=== PATIENT | female | born 1965 | race Two or more races ===

== ENCOUNTER → 2022-01-13 | Outpatient (CLI) | payer BC, SELFPAY ==
--- NOTE | 2022-01-13 08:01 | BI_ITS ---
MAMMOGRAPHY - BILATERAL SCREENING REASON FOR EXAM: Female, 56 years old. Routine annual screening examination. PERTINENT HISTORY: Aunts with breast cancer. TECHNIQUE: Digital bilateral breast kiera (3D mammographic acquisition) in the CC and MLO projections. 2-D mediolateral oblique (MLO) and craniocaudad (CC) views of both breasts were obtained. CAD: Full Field Digital Mammography with Computer Added Detection was performed. COMPARISON: Comparison is made with prior outside examination dated 03/31/2019. FINDINGS: Breast Composition: There are scattered areas of fibroglandular density. There are no dominant masses or suspicious calcifications. Stable asymmetry of breast tissue where more breast tissue is seen in the retroareolar region of the left breast as compared to the right side. Correlation with ultrasound is recommended. No other significant abnormalities are identified. There has been no significant change since the prior study. BI/SCRN MAMM (CAD)W/KIERA BILAT IMPRESSION: Stable bilateral screening mammogram. Correlation with ultrasound of the retroareolar region of the left breast is recommended for further evaluation. ASSESSMENT CATEGORY: BIRADS Category 0: Incomplete. Need additional imaging evaluation. A letter regarding these results will be sent to the patient by the facility within 30 days. Approximately 10% of breast cancers are not detected by mammography. A normal mammogram should not delay biopsy of a clinically suspicious abnormality. [id number] Electronically Signed: Mj Garcia MD at 14:42 EST ,
== END | disposition home or self-care (01) ==
LOC: OPBI 07:57
PROVIDERS: Visit Provider Nurse Practitioner Women's Health
DX: Z12.31 Encounter for screening mammogram for malignant neoplasm of breast (principal); Z80.3 Family history of malignant neoplasm of breast
CPT/HCPCS: 77063; 77067

== ENCOUNTER → 2022-01-27 | Outpatient (CLI) | payer BC, SELFPAY ==
--- NOTE | 2022-01-27 09:10 | US_ITS ---
STUDY: ULTRASOUND BREAST - LEFT REASON FOR EXAM: Female, 56 years old. Abnormal screening mammogram. TECHNIQUE: Axial and longitudinal images of the LEFT breast were performed with a high resolution ultrasound transducer. # OF IMAGES: 47 COMPARISON: Comparison is made with prior mammogram dated 01/13/2022. FINDINGS: LEFT Breast: The retroareolar region of the left breast was examined with ultrasound. There is a 4 mm x 3 mm x 2 mm cyst. There is also evidence of a 3 cm x 5.4 cm x 1.2 cm echogenic well-defined nodule at 9 o''clock position of the breast at 4 cm from the nipple. A similar appearing echogenic nodule is seen at the 9 o''clock position of the breast at 3 cm from nipple. This most likely represents a small lipoma. US/Breast Limited Unilateral IMPRESSION: 4 mm x 3 mm x 2 mm cyst in the retroareolar region of the breast. 5.4 cm x 3 cm x 1.2 cm echogenic well-defined nodule at the 9 o''clock position breast 4 cm from nipple. This most likely represents a lipoma. ASSESSMENT CATEGORY: BIRADS Category 2: Benign. A letter regarding these results will be sent to the patient by the facility within 30 days. Electronically Signed: Mj Garcia MD at 9:16 EST ,
== END | disposition home or self-care (01) ==
LOC: OPBI 09:08
PROVIDERS: Visit Provider Nurse Practitioner Women's Health
DX: R92.8 Other abnormal and inconclusive findings on diagnostic imaging of breast (principal)
CPT/HCPCS: 76642

== ENCOUNTER → 2022-07-07 | Outpatient (CLI) | payer BC, SELFPAY ==
[2022-07-07 12:20] LABS: Absolute Neutrophil Count 2.5 X10^3/uL (2.0-7.7); Basophil# 0.02 X10^3/uL; Basophil% 0.5 % (0-1); Eosinophils% 5.2 % (0-5); Hematocrit 44.9 % (37-47); Hemoglobin 14.3 g/dL (12.0-15.0); Lymphocyte % 20.6 % (19-41); Mean Corp Hgb Conc 31.8 g/dL (32-36); Mean Corpuscular Hgb 30.8 pg (27.0-32.0); Mean Corpuscular Volume 96.6 fL (81-99); Mean Platelet Vol. 11.5 fl (6.2-12.0); Monocyte# 0.35 X10^3/uL; NRBC Flagged by Analyzer 0 % (0-5); Neutrophil # 2.49 X10^3/uL (2.7-7.7); Neutrophil % 64.2 % (47-70); Platelet Count 258 K/mm3 (150-450); RBC Distribution Width CV 12.2 % (11.6-14.6); RBC Distribution Width SD 43.7 fl (35.1-43.9); Red Blood Count 4.65 M/mm3 (4.2-5.4); White Blood Count 3.9 K/mm3 (4.4-11.0)
[2022-07-07 12:39] LABS: Hemoglobin A1c 5.3 % (3.8-5.6)
[2022-07-07 12:46] LABS: AST(SGOT) 17 U/L (15-37); Alanine Aminotransfer ALT/SGPT 25 U/L (13-56); Albumin, Serum 3.6 g/dL (3.2-5.0); Alkaline Phosphatase 62 U/L (45-117); Anion Gap 8 (5-15); BUN 18 mg/dL (7-18); BUN/Creat Ratio 24.1 RATIO (10-20); Calcium,Total 8.6 mg/dL (8.5-10.1); Chloride 107 mmol/L (98-107); Cholesterol 175 mg/dL (200); Creatinine, Serum 0.75 mg/dL (0.55-1.02); EST Glomerular Filtration Rate 85 mL/min (>60); Est Glom Filt Rate - Afr Amer 103 mL/min (>60); Free T3 2.4 pg/mL (2.18-3.98); Globulin 3.7 g/dL (2.2-4.2); Glucose 96 mg/dL (74-106); High Density Lipoprotein 55 mg/dL; Potassium 4.1 mmol/L (3.5-5.1); Protein, Total 7.3 g/dL (6.4-8.2); Sodium Level 140 mmol/L (136-145); Thyroid Stim Hormone (TSH) 1.57 uIU/mL (0.358-3.74); Triglycerides 71 mg/dL; Very Low Density Lipoprotein 14 mg/dL (5-40)
[2022-07-08 16:09] LABS: Thyroglobulin Antibody 20.9 IU/mL (0.0-0.9); Thyroid Peroxidase AB 308 IU/mL (0-34)
== END | disposition home or self-care (01) ==
PROVIDERS: Visit Provider Family Medicine
DX: R79.89 Other specified abnormal findings of blood chemistry (principal); R00.2 Palpitations
CPT/HCPCS: 36415; 80053; 80061; 83036; 84439; 84443; 84481; 85025; 86376; 86800

== ENCOUNTER → 2022-07-30 | Outpatient (CLI) | payer BC, MEDICAID, SELFPAY ==
[2022-07-30 13:16] LABS: T4 Free Direct 0.98 ng/dL (0.76-1.46); Thyroid Stim Hormone (TSH) 4.87 uIU/mL (0.358-3.74)
== END | disposition home or self-care (01) ==
LOC: MFPLAB 10:12
PROVIDERS: PCP Family Medicine; Visit Provider Family Medicine
DX: E06.3 Autoimmune thyroiditis (principal)
CPT/HCPCS: 36415; 84439; 84443

== ENCOUNTER 2022-10-09 17:44 | Emergency (ER) | payer BC, MEDICAID, SELFPAY ==
[2022-10-09 17:46] VITALS: BP 134/87; PULSE 85; RESP 18; TEMP 36.4; O2SAT 99; BMI 36.5
--- NOTE | 2022-10-09 20:39 | NURSING ---
1925 pt left,no response to why.
== END 2022-10-09 21:39 | disposition left against medical advice (07) ==
PROVIDERS: PCP Family Medicine
DX: K08.89 Other specified disorders of teeth and supporting structures (principal)

== ENCOUNTER 2022-10-27 13:43 | Emergency (ER) | payer MEDICAID, SELFPAY ==
[2022-10-27 13:44] VITALS: BP 159/117; PULSE 78; RESP 20; TEMP 36.6; O2SAT 99; BMI 37.0
--- NOTE | 2022-10-27 14:54 | ED.VIS.DENTA ---
HPI History of Present Illness Chief Complaint: Dental Informant: patient Onset/Context/Timing Onset: Weeks (2 weeks) Context: Gradual Onset Current Severity: Moderate Maximum Severity: Moderate Narrative Narrative: Patient presents with 2-week history of increasing right lower dental pain. She states her wisdom teeth grew in with not much space and she has intermittent problems with them. For the past 2-week she had increasing pain. gave her an 800 mg ibuprofen last night that did seem to calm it down enough that she could sleep. She has not been able get scheduled with her dentist until January. PFSH PFSH Medical History no medical history no medical history Home Medications ibuprofen 800 mg tablet 800 mg PO Q8H PRN pain #20 tabs 10/27/22 [Rx Last Taken Unknown] penicillin V potassium 500 mg tablet 500 mg PO 4X/DAY #40 tabs 10/27/22 [Rx Last Taken Unknown] Allergy/AdvReac Type Severity Reaction Status Date / Time No Known Allergies Allergy Verified 10/27/22 13:45 Family History no significant family his Surgical History no surgical history Social History Smoking Status: Unknown if ever smoked ROS ROS ED Constitutional Constitutional ED: Denies chills or fever(s) Eyes Eyes: Denies discharge from eye(s) ENT ENT ED: Reports ear pain and other Details: Right lower dental pain ; Denies discharge from eye(s), rhinorrhea or sore throat Cardiovascular Cardiovascular: Denies chest pain Respiratory/Chest Respiratory/Chest: Denies cough or dyspnea Musculoskeletal Musculoskeletal: Denies back pain, extremity pain or neck pain Integumentary Denies Abrasions or rash Neurologic Neurologic: Denies headache(s) or weakness Allergic/Immunologic Allergic/Immunologic ED: Denies lip swelling or urticaria EXAM Physical Exam Const Vital Signs: 10/27/22 13:44 Temperature 97.9 F Temperature Source Temporal Pulse Rate 78 Respiratory Rate 20 H Blood Pressure 159/117 H Blood Pressure Mean 131 Pulse Ox 99 Oxygen Delivery Method Room Air Positive well nourished and well developed General Appearance ED: well developed HEENT Reports normocephalic and head/scalp atraumatic HEENT Narrative: Intraoral examination reveals second and third right mandibular molars to be crowded and growing in at an angle. Mild surrounding gum edema. Patient does have an enlarged lymph node under the right mandibular angle. No evidence of Ludewig's angina. Posterior pharynx is unremarkable. Eyes PERRL and EOMs intact bilaterally Neck supple Chest Wall inspection of chest normal and palpation of chest normal Resp normal respiratory effort and clear to auscultation bilaterally Cardio regular rate and regular rhythm GI Palpation: soft Extremity normal to inspection Neuro oriented x3 and no sensory deficits noted Sensorium / Orientation: alert Motor Exam: strength 5/5 throughout Psych mental status grossly normal Skin no rashes or lesions noted MDM MDM MDM Narrative Medical decision making narrative: Patient was treated with ibuprofen and Pen-Vee K, first dose is given here. Prescription be sent to the pharmacy for her. I did give her a referral dental clinic list to see if she can be seen earlier than her currently scheduled appointment. Return instructions given. Discharge Plan Triage Chief Complaint: Dental ED Provider: Marcela Blanchard Dx/Rx/DC Orders Clinical Impression: Odontalgia Instructions: ED Dental Pain Prescriptions: New ibuprofen 800 mg tablet 800 mg PO Q8H PRN (Reason: pain) Qty: 20 0RF penicillin V potassium 500 mg tablet 500 mg PO 4X/DAY Qty: 40 0RF Primary Care Provider: Svetlana Velez Referrals: Svetlana Velez, DO [Primary Care Provider] - Activity Restrictions/Additional Instructions: Dental referral list provided. Disposition Disposition: Home, Self Care
[2022-10-27] MEDS: Ibuprofen 400 MG Tablet 800 MG PO (15:23)
[2022-10-27] MEDS: Penicillin Vk 250 MG Tablet 500 MG PO (15:24)
== END 2022-10-27 15:29 | disposition home or self-care (01) ==
PROVIDERS: Emergency Provider Emergency Medicine; PCP Family Medicine; Visit Provider Emergency Medicine
DX: K08.89 Other specified disorders of teeth and supporting structures (principal)
CPT/HCPCS: 99283

== ENCOUNTER 2023-02-13 20:30 | Emergency (ER) | payer MEDICAID, SELFPAY ==
[2023-02-13 20:31] VITALS: BP 152/97; PULSE 78; RESP 15; TEMP 36.4; O2SAT 98; BMI 36.8
--- NOTE | 2023-02-13 20:36 | RAD_ITS ---
INDICATION: Pain and swelling fifth digit EXAMINATION/TECHNIQUE: X-RAY - RIGHT XR Foot Min 3 Views 3 VIEWS COMPARISON: None. FINDINGS: SOFT TISSUES: No soft tissue swelling or gas. No radiopaque foreign body. BONES/JOINTS: No acute fracture. Small plantar calcaneal spur. Joint spaces anatomically aligned. No sclerotic or destructive changes observed. RAD/Foot min 3 Views IMPRESSION: No acute bony injury. Electronically Signed: Aly Sheffield MD at 21:34 EST ,
--- NOTE | 2023-02-13 20:46 | RAD_ITS ---
INDICATION: PAIN AND EDEMA EXAMINATION/TECHNIQUE: X-RAY - RIGHT XR Ankle Min 3 Views 3 VIEWS COMPARISON: None. FINDINGS: SOFT TISSUES: No soft tissue swelling or gas. No radiopaque foreign body. BONES/JOINTS: No acute fracture. Small plantar calcaneal spur. Joint spaces anatomically aligned. No sclerotic or destructive changes observed. RAD/Ankle min 3 Views IMPRESSION: No acute bony injury. Electronically Signed: Aly Sheffield MD at 21:35 EST ,
--- OUTSIDE RECORDS SUMMARY | 2023-02-13 21:39 | XMS RPT_ITS | CCD ---
Author Name Unknown Address [address] [facility] [address] [place] [id number] Organization [facility] Care Team Providers Care Veterinary Receptionist Name Role Phone PHYSICIAN, NONE Primary Care Physician Unavailab saji MUNGUIA MD, CANDI Lopez Attending Unavail able PHYSICIAN, NONE Primary Care Unavailable PHYSICIAN, NONE Primary Care Unavailable SUZANNE COON, OSCAR Morris Attending Unavailable Medications Current Medications Medication Drug Class(es) Dates Sig (Normalized) Sig (Original) clindamycin 300 mg oral capsule (1 source) Lincosamide Antibacterial Start: 10-09-2022 End: 10-19-2022 clindamycin 300 mg oral capsule Dose : 300 mg = 1 cap(s), Oral, q6h, X 10 day(s), # 40 cap(s), 0 Refill(s), 10/19/22 8:52:00 PM EDT, 100 Start Date: 10/09/22 Stop Date: 10/19/22 Status: Ordered naproxen 500 mg oral tablet (1 source) Nonsteroidal Anti-inflammatory Drug Start: 10-09-2022 End: 10-14-2022 naproxen 500 mg oral tablet Dose : 500 mg = 1 tab(s), Oral, BID, X 5 day(s), # 10 tab(s), 0 Refill(s), 10/14/22 8:53:00 PM EDT Start Date: 10/09/22 Stop Date: 10/14/22 Status: Ordered Problems Problem Classification Problem Date Documented Da te Episodic/Chronic Disorders of teeth and jaw (1 source) Disorder of teeth AND/OR supporting structures; Translations: [Other specified disorders of teeth and supporting structures] Onset: 10-09-2022 Episodic Results Test Name Value Interpretation Reference Range Facil ity Vital Signs Date Time Vital Sign Value Performing Clinician Faci lity 10-09-2022 20:08-0400 Body height 165.1 cm OSCAR PALACIOS MD [facility] 10-09-2022 20:08-0400 Body temperature 98.42 [degF] OSCAR PALACIOS MD [facility] 10-09-2022 20:08-0400 Body weight 100 kg OSCAR PALACIOS MD [facility] 10-09-2022 20:08-0400 Diastolic Blood Pressure Non-Invasive 89 1 OSCAR PALACIOS MD [facility] 10-09-2022 20:08-0400 Heart rate 68 /min OSCAR PALACIOS MD [facility] 10-09-2022 20:08-0400 Respiratory rate 18 /min OSCAR PALACIOS MD [facility] 10-09-2022 20:08-0400 Systolic Blood Pressure Non-Invasive 144 1 OSCAR PALACIOS MD [facility] Encounters Encounter Date Encounter Type Care Provider Facility Start: 10-09-2022 End: 10-09-2022 Emergency department patient visit NONE PHYSICIAN Facility:B Start: 10-09-2022 End: 10-09-2022 Emergency department patient visit OSCAR PALACIOS MD [facility] Start: 12-13-2021 End: 12-13-2021 Emergency department patient visit CANDI MUNGUIA MD Facility:B Payers Date Payer Category Payer Unknown [id number] 2021 Unknown [id number] 1965 Unknown [id number] 1965 Unknown [id number] Social History Date Type Detail Facility Start: 10-09-2022 Tobacco smoking status Never s moked tobacco (finding) [facility] Sex Assigned At Female [facility] Functional Status Date Assessment Result Facility 10-09-2022 Functional Status ID band on, Call device within reach, Bed in low position, Wheels locked, Upper/Half-Length side-rails up, personal items within reach, Visitor at bedside [facility] Mental Status Date Assessment Result Facility 10-09-2022 Mental Status Oriented x 4 [facility] Discharge instructions 10-09-2022 Note Date & Type Note Facility 10-09-2022 Hospital Discharg e instructions Patient Education 10/09/2022 20:52:34 Dental Pain Dental Pain A crack or cavity in a tooth can cause tooth pain. This is because the crack or cavity exposes the sensitive inner area of the tooth. An infection in the gum or the root of the tooth can cause pain and swelling. The pain is often made worse when you drink hot or cold beverages. It can also be worse when you bite on hard foods. Pain may spread from the tooth to your ear or the area of the jaw on the same side. Home care Follow these tips when caring for yourself at home: Don't have hot and cold foods and drinks. Your tooth may be sensitive to changes in temperature. Use toothpaste made for sensitive teeth. [place] gently up and down instead of sideways. Brushing sideways can wear away root surfaces if they are exposed. If your tooth is chipped or cracked, or if there is a large open cavity, put oil of cloves directly on the tooth to relieve pain. You can buy oil of cloves at drugstores. Some pharmacies carry an bghs-yrs-nrzbhmg toothache kit. This contains a paste that you can put on the exposed tooth to make it less sensitive. Put a cold pack on your jaw over the sore area to help reduce pain. You may use hcxd-mfy-mwkduhu medicine to ease pain, unless your doctor prescribed another medicine. If you have chronic liver or kidney disease, talk with your healthcare provider before using acetaminophen or ibuprofen. Also talk with your provider if you ve had a stomach ulcer or GI bleeding. If you have signs of an infection, you will be given an antibiotic. Take it as directed. Follow-up care Follow up with your dentist, or as advised. Your pain may go away with the treatment given today. But only a dentist can fully look at and treat the cause of your pain. This will keep the pain from coming back. Call 911 Call 911 if any of these occur: Unusual drowsiness Headache or stiff neck Weakness or fainting Difficulty swallowing or breathing When to seek medical advice Call your health care provider right away if any of these occur: Your face becomes swollen or red Pain gets worse or spreads to your neck Fever of 100.4 F (38.0 C) or higher, or as directed by your healthcare provider Pus drains from the tooth [id number] [employer] [address] [place] [address]. All rights reserved. This information is not intended as a substitute for professional medical care. Always follow your healthcare professional's instructions. Follow Up Care 10/09/2022 20:02:18 With:Dental Referral List Address: When:2-4 days Comments:Schedule appointment as soon as possibleReturn to ED if symptoms worsen [facility] Clinical Note 10-09-2022 Note Date & Type Note Facility 10-09-2022 Note Discharge Instructions Thank you for allowing [facility] to assist you with your healthcare needs. The following is important discharge information regarding your hospital visit. Diagnosis from Today's Visit Dental pain Pain, dental What to Do Next Instructions from Your Care Team Finish your antibiotic. Naprosyn as directed. Dental follow-up in 2 to 3 days. Return for trouble swallowing or breathing, or if you are worse in any way. No qualifying data available. Post Acute Orders No qualifying data available. You Need to Schedule the Following Appointments Follow Up with Dental Referral List When Within 2-4 days Why: Schedule appointment as soon as possible Return to ED if symptoms worsen Where: Allergies No Known Medication Allergies Medications Please ask your primary doctor or pharmacist before taking any other medication not listed, including over the counter drugs, herbal medications, vitamins and or supplements as they may interact with your home medications. What How Much When Instructions Last Dose New clindamycin (clindamycin 300 mg oral capsule) 1 cap by mouth Every 6 hours Duration: 10 Days Printed Prescription New naproxen (naproxen 500 mg oral tablet) 1 tab(s) by mouth Two (2) times a day Duration: 5 Days Printed Prescription Please take this list to your next doctor s visit. Bring all medications you take, including over the counter medications, herbals and other supplements with you to your doctor s visit. Patients and families are reminded to discard old lists and to update any records with all medication providers or retail pharmacies. Medication Leaflets clindamycin (oral/injection) (sanjiv christ campos) Cleocin HCl, Cleocin Pediatric, Cleocin Phosphate What is the most important information I should know about clindamycin? Clindamycin can cause diarrhea, which may be severe or lead to serious, life-threatening intestinal problems. If you have diarrhea that is watery or bloody, stop using clindamycin and call your doctor. What is clindamycin? Clindamycin is an antibiotic that is used to treat serious infections caused by bacteria. Clindamycin may also be used for purposes not listed in this medication guide. What should I discuss with my healthcare provider before using clindamycin? You should not use this medicine if you are allergic to clindamycin or lincomycin. Tell your doctor if you have ever had: colitis, Crohn's disease, or other intestinal disorder; eczema, or allergic skin reaction; asthma or a severe allergic reaction to aspirin; liver or kidney disease; or an allergy to yellow food dye. It is not known whether this medicine will harm an unborn baby. Tell your doctor if you are or plan to become . Clindamycin can pass into breast milk and may cause side effects in the nursing baby. If you are while taking this medicine, call your doctor if your baby has diaper rash, redness or white patches in the mouth or throat, stomach discomfort, or diarrhea that is watery or bloody. Clindamycin injection may contain an ingredient that can cause serious side effects or in very young or premature babies. Do not give this medicine to a child without medical advice. How should I use clindamycin? Follow all directions on your prescription label and read all medication guides or instruction sheets. Use the medicine exactly as directed. Clindamycin oral is taken by mouth. Clindamycin injection is injected into a muscle, or as an infusion into a vein. A healthcare provider will give your first dose and may teach you how to properly use the medication by yourself. Take the capsule with a full glass of water to keep it from irritating your throat. Measure liquid medicine carefully. Use the dosing syringe provided, or use a medicine dose-measuring device (not a kitchen spoon). You may need frequent medical tests during treatment. If you need surgery, tell your surgeon you currently use clindamycin. Use this medicine for the full prescribed length of time, even if your symptoms quickly improve. Skipping doses can increase your risk of infection that is resistant to medication. Clindamycin will not treat a viral infection such as the flu or a common cold. Store at room temperature away from moisture and heat. Protect the injectable medicine from high heat. Do not store the oral liquid in the refrigerator. Throw away any unused oral liquid after 2 weeks. Use a needle and syringe only once and then place them in a puncture-proof 'sharps' container. Follow state or local laws about how to dispose of this container. Keep it out of the reach of children and pets. What happens if I miss a dose? Use the medicine as soon as you can, but skip the missed dose if it is almost time for your next dose. Do not use two doses at one time. What happens if I overdose? Seek emergency medical attention or call the Poison Help line at . What should I avoid while using clindamycin? Antibiotic medicines can cause diarrhea, which may be a sign of a new infection. If you have diarrhea that is watery or bloody, call your doctor. Do not use anti-diarrhea medicine unless your doctor tells you to. What are the possible side effects of clindamycin? Get emergency medical help if you have signs of an allergic reaction (hives, difficult breathing, swelling in your face or throat) or a severe skin reaction (fever, sore throat, burning in your eyes, skin pain, red or purple skin rash that spreads and causes blistering and peeling). Seek medical treatment if you have a serious drug reaction that can affect many parts of your body. Symptoms may include: skin rash, fever, swollen glands, flu-like symptoms, muscle aches, severe weakness, unusual bruising, or yellowing of your skin or eyes. Call your doctor at once if you have: kidney problems--swelling, urinating less, feeling tired or short of breath; liver problems--loss of appetite, stomach pain (upper right side), tiredness, itching, dark urine, jaince-colored stools, jaundice (yellowing of the skin or eyes); any change in bowel habits; severe stomach pain, diarrhea that is watery or bloody; little or no urination; or a metallic taste in your mouth (after clindamycin injection). Common side effects may include: nausea, vomiting, stomach pain; mild skin rash; or vaginal itching or discharge; This is not a complete list of side effects and others may occur. Call your doctor for medical advice about side effects. You may report side effects to FDA at 0-486-JQF-7194. What other drugs will affect clindamycin? Sometimes it is not safe to use certain medications at the same time. Some drugs can affect your blood levels of other drugs you take, which may increase side effects or make the medications less effective. Other drugs may affect clindamycin, including prescription and ppus-rqy-kavouot medicines, vitamins, and herbal products. Tell your doctor about all your current medicines and any medicine you start or stop using. Where can I get more information? Your pharmacist can provide more information about clindamycin. Remember, keep this and all other medicines out of the reach of children, never share your medicines with others, and use this medication only for the indication prescribed. Every effort has been made to ensure that the information provided by [employer]') is accurate, up-to-date, and complete, but no guarantee is made to that effect. Drug information contained herein may be time sensitive. [employer] information has been compiled for use by healthcare practitioners and consumers in the [place] and therefore [employer] does not warrant that uses outside of the [place] are appropriate, unless specifically indicated otherwise. [employer] drug information does not endorse drugs, diagnose patients or recommend therapy. [employer] drug information is an informational resource designed to assist licensed healthcare practitioners in caring for their patients and/or to serve consumers viewing this service as a supplement to, and not a substitute for, the expertise, skill, knowledge and judgment of healthcare practitioners. The absence of a warning for a given drug or drug combination in no way should be construed to indicate that the drug or drug combination is safe, effective or appropriate for any given patient. [employer] does not assume any responsibility for any aspect of healthcare administered with the aid of information [employer] provides. The information contained herein is not intended to cover all possible uses, directions, precautions, warnings, drug interactions, allergic reactions, or adverse effects. If you have questions about the drugs you are taking, check with your doctor, nurse or pharmacist. Copyright 9284-0824 [employer]. Version: 14.. Revision Date: 11/12/2021. naproxen (na PROX en) Aleve, Aleve Back and Muscle Pain, Aleve Easy Open Arthritis, Aleve Liquid Gels, Anaprox-DS, EC-Naprosyn, Naprelan, Naprosyn What is the most important information I should know about naproxen? Naproxen can increase your risk of fatal heart attack or stroke. Do not use this medicine just before or after heart bypass surgery (coronary artery bypass graft, or CABG). Naproxen may also cause stomach or intestinal bleeding, which can be fatal. What is naproxen? Naproxen is a nonsteroidal anti-inflammatory drug (NSAID). Naproxen is used to treat pain or inflammation caused by conditions such as arthritis, ankylosing spondylitis, tendinitis, bursitis, gout, or menstrual cramps. The delayed-release or extended-release tablets are slower-acting forms of naproxen that are used only for treating chronic conditions such as arthritis or ankylosing spondylitis. These forms of naproxen will not work fast enough to treat acute pain. Naproxen may also be used for purposes not listed in this medication guide. What should I discuss with my healthcare provider before taking naproxen? Naproxen can increase your risk of fatal heart attack or stroke, even if you don't have any risk factors. Do not use this medicine just before or after heart bypass surgery (coronary artery bypass graft, or CABG). Naproxen may also cause stomach or intestinal bleeding, which can be fatal. These conditions can occur without warning while you are using naproxen, especially in older adults. You should not use naproxen if you are allergic to it, or if you have ever had an asthma attack or severe allergic reaction after taking aspirin or an NSAID. Ask a doctor before giving naproxen to a child younger than 12 years old. Ask a doctor or pharmacist if this medicine is safe to use if you have: heart disease, high blood pressure, high cholesterol, diabetes, or if you smoke; a heart attack, stroke, or blood clot; stomach ulcers or bleeding; asthma; liver or kidney disease; fluid retention; or if you take aspirin to prevent heart attack or stroke. If you are , you should not take naproxen unless your doctor tells you to. Taking an NSAID during the last 20 weeks of can cause serious heart or kidney problems in the unborn baby and possible complications with your . It may not be safe to breastfeed while using this medicine. Ask your doctor about any risk. How should I take naproxen? Use exactly as directed on the label, or as prescribed by your doctor. Use the lowest dose that is effective in treating your condition. Shake the oral suspension (liquid) before you measure a dose. Measure a dose with the supplied measuring device (not a kitchen spoon). Take this medicine with food or milk if it upsets your stomach. Always follow directions on the medicine label about giving this medicine to a child. Naproxen doses are based on weight in children. Your child's dose needs may change if the child gains or loses weight. If you use naproxen long-term, you may need frequent medical tests. This medicine can affect the results of certain medical tests. Tell any doctor who treats you that you are using naproxen. Store at room temperature away from moisture, heat, and light. Keep the bottle tightly closed when not in use. What happens if I miss a dose? Since naproxen is used when needed, you may not be on a dosing schedule. Skip any missed dose if it's almost time for your next dose. Do not use two doses at one time. What happens if I overdose? Seek emergency medical attention or call the Poison Help line at . What should I avoid while taking naproxen? Avoid drinking alcohol. It may increase your risk of stomach bleeding. Avoid taking aspirin or other NSAIDs unless your doctor tells you to. Ask a doctor or pharmacist before using other medicines for pain, fever, swelling, or cold/flu symptoms. They may contain ingredients similar to naproxen (such as aspirin, ibuprofen, or ketoprofen). Ask your doctor before using an antacid, and use only the type your doctor recommends. Some antacids can make it harder for your body to absorb naproxen. What are the possible side effects of naproxen? Get emergency medical help if you have signs of an allergic reaction (runny or stuffy nose, wheezing or trouble breathing, hives, swelling in your face or throat) or a severe skin reaction (fever, sore throat, burning eyes, skin pain, red or purple skin rash with blistering and peeling). Stop using naproxen and seek medical treatment if you have a serious drug reaction that can affect many parts of your body. Symptoms may include skin rash, fever, swollen glands, muscle aches, severe weakness, unusual bruising, or yellowing of your skin or eyes. Get emergency medical help if you have signs of a heart attack or stroke: chest pain spreading to your jaw or shoulder, sudden numbness or weakness on one side of the body, slurred speech, leg swelling, feeling short of breath. Stop using naproxen and call your doctor at once if you have: shortness of breath (even with mild exertion); swelling or rapid weight gain; the first sign of any skin rash or blister, no matter how mild; signs of stomach bleeding--bloody or tarry stools, coughing up blood or vomit that looks like coffee grounds; liver problems--nausea, upper stomach pain, loss of appetite, dark urine, janice-colored stools, jaundice (yellowing of the skin or eyes); kidney problems--little or no urination, painful urination, swelling in your feet or ankles; or low red blood cells (anemia)--pale skin, unusual tiredness, feeling light-headed or short of breath, cold hands and feet. Common side effects may include: headache; indigestion, heartburn, stomach pain; or flu symptoms; This is not a complete list of side effects and others may occur. Call your doctor for medical advice about side effects. You may report side effects to FDA at 9-645-GML-3797. What other drugs will affect naproxen? Ask your doctor before using naproxen if you take an antidepressant. Taking certain antidepressants with an NSAID may cause you to bruise or bleed easily. Ask a doctor or pharmacist before using naproxen with any other medications, especially: other NSAIDs or salicylates (diflunisal, salsalate); antacids and sucralfate; cholestyramine; cyclosporine; digoxin; lithium; methotrexate; pemetrexed; probenecid; warfarin (Coumadin, Jantoven) or similar blood thinners; a diuretic or 'water pill'; or heart or blood pressure medication. This list is not complete. Other drugs may affect naproxen, including prescription and ycho-yyd-dzaxusl medicines, vitamins, and herbal products. Not all possible drug interactions are listed here. Where can I get more information? Your pharmacist can provide more information about naproxen. Remember, keep this and all other medicines out of the reach of children, never share your medicines with others, and use this medication only for the indication prescribed. Every effort has been made to ensure that the information provided by [employer] is accurate, up-to-date, and complete, but no guarantee is made to that effect. Drug information contained herein may be time sensitive. [employer] information has been compiled for use by healthcare practitioners and consumers in the [place] and therefore [employer] does not warrant that uses outside of the [place] are appropriate, unless specifically indicated otherwise. [employer] drug information does not endorse drugs, diagnose patients or recommend therapy. [employer] drug information is an informational resource designed to assist licensed healthcare practitioners in caring for their patients and/or to serve consumers viewing this service as a supplement to, and not a substitute for, the expertise, skill, knowledge and judgment of healthcare practitioners. The absence of a warning for a given drug or drug combination in no way should be construed to indicate that the drug or drug combination is safe, effective or appropriate for any given patient. [employer] does not assume any responsibility for any aspect of healthcare administered with the aid of information [employer] provides. The information contained herein is not intended to cover all possible uses, directions, precautions, warnings, drug interactions, allergic reactions, or adverse effects. If you have questions about the drugs you are taking, check with your doctor, nurse or pharmacist. Copyright 1393-3118 [employer]. Version: 22.01. Revision Date: 09/18/2022. Education Materials Dental Pain A crack or cavity in a tooth can cause tooth pain. This is because the crack or cavity exposes the sensitive inner area of the tooth. An infection in the gum or the root of the tooth can cause pain and swelling. The pain is often made worse when you drink hot or cold beverages. It can also be worse when you bite on hard foods. Pain may spread from the tooth to your ear or the area of the jaw on the same side. Home care Follow these tips when caring for yourself at home: Don't have hot and cold foods and drinks. Your tooth may be sensitive to changes in temperature. Use toothpaste made for sensitive teeth. [place] gently up and down instead of sideways. Brushing sideways can wear away root surfaces if they are exposed. If your tooth is chipped or cracked, or if there is a large open cavity, put oil of cloves directly on the tooth to relieve pain. You can buy oil of cloves at [facility]. Some pharmacies carry an xtkv-fun-hzfrsjc toothache kit. This contains a paste that you can put on the exposed tooth to make it less sensitive. Put a cold pack on your jaw over the sore area to help reduce pain. You may use cidb-wso-ptrksax medicine to ease pain, unless your doctor prescribed another medicine. If you have chronic liver or kidney disease, talk with your healthcare provider before using acetaminophen or ibuprofen. Also talk with your provider if you ve had a stomach ulcer or GI bleeding. If you have signs of an infection, you will be given an antibiotic. Take it as directed. Follow-up care Follow up with your dentist, or as advised. Your pain may go away with the treatment given today. But only a dentist can fully look at and treat the cause of your pain. This will keep the pain from coming back. Call 911 Call 911 if any of these occur: Unusual drowsiness Headache or stiff neck Weakness or fainting Difficulty swallowing or breathing When to seek medical advice Call your health care provider right away if any of these occur: Your face becomes swollen or red Pain gets worse or spreads to your neck Fever of 100.4 F (38.0 C) or higher, or as directed by your healthcare provider Pus drains from the tooth [phone] [employer] [address] [place] [address], [place] [address]. All rights reserved. This information is not intended as a substitute for professional medical care. Always follow your healthcare professional's instructions. Additional Information VACCINATE! IT SAVES LIVES! Members of the community who have not yet received the COVID-19 vaccine and would like to receive it can visit one of [facility] vaccine clinics. There are many vaccine clinic locations within the [facility]. For locations and available times, please visit www.gettheshot.coronavirus.[place].gov/. It is important to note that some COVID mobile vaccine clinics are held outdoors and may be canceled in rainy or stormy conditions. To learn more about pediatric vaccinations (ages 5-11), we invite you to visit the [facility] webpage. [email or web address]/[email or web address]-Fbfva-Jecgiejbjov-Frequently-Asked -Questions.html To learn more about the COVID-19 vaccine, we invite you to visit the CDC website for a list of frequently asked questions. https://www.cdc.gov/coronavirus/2019-n cov/vaccines/faq.html [facility] Patient Portal Access Instructions: Stay connected with your healthcare team and access your personal medical information anytime with the [facility] Patient Portal. If you would like a full copy of your medical records please contact the [facility] Medical Records Department Thursday through Thursday between 8a.m. and 4:30p.m. Please follow the directions below to access the portal: 1.Access the email account you provided upon registration to the hospital.2.Look for an invitation email from [facility].3.Open the email and access the invitation link: Accept Invitation to [facility].Fill in the required santos to create your account. Sign into www.[employer] with your username and password that you created in the above steps to stay up to date. You can then view a summary of results, a summary of your visits, and the ability to download your summaries to your computer or send the information securely to a physician. Remember that your healthcare information is confidential, so carefully consider who you will allow to register on the [facility] Patient Portal for access to your information. You can also access the [facility] Patient Portal on the [employer] randell. Simply click on Health Records under Health Data and then click on the [employer] logo. HOW TO SAFELY DISPOSE OF PRESCRIPTION MEDICATIONS Please use one of the following methods to safely dispose of your unused medications. 1.Use a drug disposal kit: the drug disposal pouch allows you to safely discard your old and unused drugs. Ask your nurse to give you one when you are discharged.2.Visit a local take-back location: Many local pharmacies and police departments have programs that collect old and unwanted prescription drugs. Call your local pharmacy or go to http://Govtoday.FitnessManager/6Z2Og4g to find one close to you.3.Make use of household items: Use cat litter or old coffee grounds to dispose medications if other options are not available. Mix your drugs with these household products, seal them in an airtight container and throw it into the garbage. Call [facility]: [phone] to be sure your drugs can be disposed of in this way. Some medicines may require a different approach.4.Never flush your medications down the toilet. IF YOU HAVE BEEN PRESCRIBED AN OPIOIDS FOR PAIN If you have been prescribed an opioid (such as hydrocodone, oxycodone or morphine), it is critical to understand the possible side effects and risks of opioid pain medications. Even when taken as directed, opioids can have several side effects including: Tolerance, meaning you might need to take more of a medication for the same pain relief. Nausea, vomiting and/or constipation. Sleepiness, dizziness, dry mouth, confusion, depression or itching. Physical dependence, meaning you have withdrawal symptoms when a medication is stopped ? this can develop within a few days. KNOW YOUR RESPONSIBILITIES It is important to know exactly how much and how often to take the opioid pain medications you are prescribed. Never take opioids in higher amounts or more often than prescribed. Do not combine opioids with alcohol or other drugs that cause drowsiness, such as benzodiazepines, also known as benzos, including diazepam and alprazolam, muscle relaxants or sleep aids. Never sell or share prescription opioids. This is illegal. Store opioids in a secure place and out of reach of others (including children, family, friends and visitors). The last page(s) of this document has been signed and retained as a CHART COPY Signatures Patient Education Materials Dental Pain Medication Leaflets clindamycin (oral/injection), naproxen My discharge plan and instructions have been reviewed and explained to me and IGELA DOLORES understand my current condition and have read and understand these discharge instructions. I have received a written copy of the plan/instructions. If I have questions, I am aware that I should contact my doctor. 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[employer] Signature: _ Date/Time: Relationship to Patient: Witness Name/Signature: Date/Time: [facility] Evaluation + Plan note Note Date & Type Note Facility Evaluation + Plan note No data available for this section [facility] Summary Purpose Family History No Family History Records Found Advance Directives No Advanced Directives Records Found Additional Source Comments Patient Care team informatio n (unrecognized section and content) Care Team Personnel Name: PHYSICIAN, NONE Position: Physician Member Role: Primary Care Physician Name: Quan Culver RN Position: RN Member Role: ED RN Name: OSCAR PALACIOS MD Position: ED Physician Member Role: Attending Physician Address: [facility] [address] Care Team Related Persons Name: MELECIO ORTIZ INFORMATION SOURCE (unrecogn ized section and content) FOR RECORDS PERTAINING TO PATIENTS WHO ARE OR HAVE BEEN ENROLLED IN A CHEMICAL DEPENDENCY/SUBSTANCEABUSE PROGRAM, SOME INFORMATION MAY BE OMITTED. This clinical summary was aggregated from multiple sources. Caution should be exercised in using it in the provision of clinical care. This summary normalizes information from multiple sources, and as a consequence, information in this document may materially change the coding, format and clinical context of patient data. In addition, data may be omitted in some cases. CLINICAL DECISIONS SHOULD BE BASED ON THE PRIMARY CLINICAL RECORDS. [employer] provides no warranty or guarantee of the accuracy or completeness of information in this document.
--- NOTE | 2023-02-13 21:54 | ED.VIS.LOWEX ---
HPI History of Present Illness Chief Complaint: Lower Extremity Injury Informant: patient Narrative Narrative: Patient presents with pain in her right foot and medial ankle for weeks. She does not remember exactly when it started it has been hurting for so long relatively. She does not recall an injury, however she starts talking about a prior injury that she had to her small toe on the right side that she did not present for, she thought it was about 2 months ago. Her then corrects her and states it was 8 months ago. She does not have any rashes or fever/chills or other systemic symptoms. No history of blood clots she is not on any anticoagulants. She is healthy. She states that hurts more to put weight on her foot and to move her foot and ankle around. She has seen no redness. She thinks it may be a little swollen. PFSH [facility] Medical History GERD (gastroesophageal reflux disease) Low TSH level Lymph node enlargement Home Medications ibuprofen 800 mg tablet 800 mg PO Q8H PRN pain #20 tabs 10/27/22 [Rx Last Taken Unknown] penicillin V potassium 500 mg tablet 500 mg PO 4X/DAY #40 tabs 10/27/22 [Rx Last Taken Unknown] Allergy/AdvReac Type Severity Reaction Status Date / Time No Known Allergies Allergy Verified 02/13/23 20:35 Family History no significant family his Surgical History History of appendectomy Social History Smoking Status: Never smoker ROS ROS ED Constitutional Constitutional ED: Denies chills or fever(s) Musculoskeletal Musculoskeletal: Reports extremity pain; Denies neck pain Integumentary Denies Abrasions, rash or wounds Neurologic Neurologic: Denies paresthesias or weakness EXAM Physical Exam Const Vital Signs: 02/13/23 20:31 Temperature 97.5 F L Temperature Source Temporal Pulse Rate 78 Respiratory Rate 15 Blood Pressure 152/97 H Blood Pressure Mean 115 Pulse Ox 98 Oxygen Delivery Method Room Air Positive well nourished and well developed General Appearance ED: well developed and NAD Neck full ROM and supple Back/Spine normal ROM and normal to inspection Extremity normal to inspection and full ROM Extremity Narrative: Patient can move the right foot and ankle fully without any apparent difficulty. Inspection is normal. There is no erythema, signs of any joint inflammation objectively, and I see no objective signs of any swelling anywhere. She has an intact 2+/4 dorsalis pedis pulse. There are no signs of any injuries or nidus for infection, nor do I see any signs of cellulitis. The areas of tenderness are at the tibial aspect of the first metatarsal, there is some mild tenderness dorsally a little more proximally in the area of the first metatarsal but the rest of the midfoot is nontender. The arch soft tissues are nontender, the calcaneus is nontender, the medial aspect of the talus is nontender, she has some mild tenderness in the fifth toe but the other toes are nontender. The ankle is nontender, she can move it fully but states that hurts to move. She does not appear to have any difficulty moving it without bearing weight. There are no areas of calf tenderness, all compartments are soft and nondistended, and the rest of her exam is very benign with no signs of a cord. Neuro oriented x3, no focal motor deficits and no sensory deficits noted Sensorium / Orientation: alert Psych mental status grossly normal and thought process normal Skin no wounds Rashes: no rashes MDM MDM MDM Narrative Medical decision making narrative: Three-view x-ray series each of the right foot and right ankle were obtained and on my interpretation both are negative. Radiology in agreement. They did note a small plantar calcaneal spur, but given the location of her pain more tibial aspect and dorsal in the forefoot/midfoot, I do not think this is necessarily causing this. As I discussed with this patient, I think following up with a battery container tester aluminum would be reasonable if it has been hurting her for this long, certainly in the differential are simple pathologies such as contusion or strain if she did something she cannot recall, which I discussed with her. At this time given full range of motion no signs of any unique joint involvement, no signs of cellulitis or any objective swelling to suggest a vascular issue, I do not think that there is any reason to obtain other emergent testing. Cczv-nky-tdwcccs medication should be adequate for this, I do not think she needs narcotics, she is given a podiatry referral. She is comfortable with that plan. Radiography Diagnostic Testing: Clinical Impression(s) from Imaging Studies Foot X-Ray 02/13/23 20:36 IMPRESSION: No acute bony injury. Electronically Signed: Aly Sheffield MD at 21:34 EST , Ankle X-Ray 02/13/23 20:46 IMPRESSION: No acute bony injury. Electronically Signed: Aly Sheffield MD at 21:35 EST , Discharge Plan Triage Chief Complaint: Lower Extremity Injury ED Provider: Suman Lamb Dx/Rx/DC Orders Clinical Impression: Acute pain of right foot, Acute right ankle pain Instructions: ED Foot Contusion Prescriptions: No Action ibuprofen 800 mg tablet 800 mg PO Q8H PRN (Reason: pain) Qty: 20 0RF penicillin V potassium 500 mg tablet 500 mg PO 4X/DAY Qty: 40 0RF Primary Care Provider: Svetlana Velez Referrals: Svetlana Velez, [Primary Care Provider] - Jared Blancas DPM [Med Staff - Active Staff] - (call for appt) Disposition Disposition: Home, Self Care
[2023-02-13 22:12] VITALS: RESP 16
== END 2023-02-13 22:13 | disposition home or self-care (01) ==
PROVIDERS: Emergency Provider Emergency Medicine; PCP Family Medicine; Referring Provider Emergency Medicine; Visit Provider Emergency Medicine
DX: M25.571 Pain in right ankle and joints of right foot (principal); M79.671 Pain in right foot; Z90.49 Acquired absence of other specified parts of digestive tract
CPT/HCPCS: 73610; 73630; 99282

== ENCOUNTER → 2023-09-14 | Outpatient (CLI) | payer MEDICAID, SELFPAY ==
[2023-09-14 15:18] LABS: Absolute Lymphocyte Count 1.13 X10^3/uL (0.83-4.51); Absolute Neutrophil Count 3.1 X10^3/uL (2.0-7.7); Basophil# 0.03 X10^3/uL; Basophil% 0.6 % (0-1); Eosinophil# 0.15 X10^3/uL; Eosinophils% 3.2 % (0-5); Hematocrit 41.3 % (37-47); Hemoglobin 13.7 g/dL (12.0-15.0); Lymphocyte # 1.13 X10^3/ul (0.83-4.51); Lymphocyte % 24.1 % (19-41); Mean Corp Hgb Conc 33.2 g/dL (32-36); Mean Corpuscular Volume 93.4 fL (81-99); Mean Platelet Vol. 10.7 fl (6.2-12.0); Monocyte# 0.31 X10^3/uL; Monocyte% 6.6 % (0-10); NRBC Flagged by Analyzer 0 % (0-5); Neutrophil # 3.06 X10^3/uL (2.7-7.7); Neutrophil % 65.3 % (47-70); Platelet Count 248 K/mm3 (150-450); RBC Distribution Width CV 11.9 % (11.6-14.6); RBC Distribution Width SD 41.4 fl (35.1-43.9); Red Blood Count 4.42 M/mm3 (4.2-5.4); White Blood Count 4.7 K/mm3 (4.4-11.0)
[2023-09-14 15:38] LABS: Hemoglobin A1c 5.2 % (3.8-5.6)
[2023-09-14 15:41] LABS: ALB/GLOB Ratio 1.2 RATIO (0.9-2.4); AST(SGOT) 14 U/L (15-37); Alanine Aminotransfer ALT/SGPT 21 U/L (13-56); Albumin, Serum 3.8 g/dL (3.2-5.0); Alkaline Phosphatase 60 U/L (45-117); Anion Gap 4 (5-15); BUN 15 mg/dL (7-18); BUN/Creat Ratio 18.7 RATIO (10-20); Calcium,Total 8.6 mg/dL (8.5-10.1); Chloride 110 mmol/L (98-107); Cholesterol 190 mg/dL (200); EST Glomerular Filtration Rate 78 mL/min (>60); Est Glom Filt Rate - Afr Amer 95 mL/min (>60); Free T3 2.3 pg/mL (2.18-3.98); Globulin 3.3 g/dL (2.2-4.2); Glucose 106 mg/dL (74-106); High Density Lipoprotein 58 mg/dL; Protein, Total 7.1 g/dL (6.4-8.2); Sodium Level 139 mmol/L (136-145); T4 Free Direct 0.88 ng/dL (0.76-1.46); Thyroid Stim Hormone (TSH) 2.38 uIU/mL (0.358-3.74); Triglycerides 161 mg/dL; Very Low Density Lipoprotein 32 mg/dL (5-40)
[2023-09-16 15:09] LABS: Thyroglobulin Antibody 16.6 IU/mL (0.0-0.9); Thyroid Peroxidase AB 259 IU/mL (0-34)
== END | disposition home or self-care (01) ==
LOC: PAVLAB 14:43
PROVIDERS: PCP Family Medicine; Referring Provider Family Medicine; Visit Provider Family Medicine
DX: Z13.228 Encounter for screening for other metabolic disorders (principal); R68.89 Other general symptoms and signs; E07.9 Disorder of thyroid, unspecified
CPT/HCPCS: 36415; 80053; 80061; 83036; 84439; 84443; 84481; 85025; 86376; 86800

== ENCOUNTER 2023-12-03 11:32 | Emergency (ER) | payer MEDICAID, SELFPAY ==
[2023-12-03 11:32] VITALS: BP 147/95; PULSE 87; RESP 16; TEMP 36.6; O2SAT 99; BMI 36.1
--- NOTE | 2023-12-03 12:09 | ED.VIS.GI ---
HPI HPI - GI History of Present Illness Chief Complaint: Abd Pain Informant: patient Abdominal Pain/Flank Pain Onset: Yesterday Context: Gradual Onset Timing: Continuous Quality: Stabbing Location: RLQ and LLQ Worsened by: Nothing Relieved by: Antacids (Pepto-Bismol) Nausea/Vomiting/Emesis GI Symptom: Positive for Nausea; Negative for Vomiting Diarrhea/Melena/Hematochezia GI Symptom: Positive for Diarrhea; Negative for Melena or Hematochezia Associated Symptoms Associated Symptoms: Positive for Frequency; Negative for Dysuria or Hematuria Narrative Narrative: Patient presents with abdominal pain that began yesterday. Patient states it is gradually gotten worse. Patient describes it as stabbing. Patient states it is mainly over the lower abdomen. Patient states she was taking Pepto-Bismol with no relief. Patient admits to some nausea but denies any vomiting. Patient admits to some diarrhea but denies any melena or hematochezia. Patient admits to urinary frequency but denies any dysuria or hematuria. Patient denies any fevers or chills. PFSH PFSH Medical History Multiple lipomas Anemia Low TSH level GERD (gastroesophageal reflux disease) Home Medications ?Medication ?Instructions ?Recorded ?Last Taken ?Type ibuprofen 800 mg tablet 800 mg PO Q8H PRN pain #20 tabs 10/27/22 Unknown Rx cholecalciferol (vitamin D3) 50 50 mcg PO QDAY 12/02/23 Unknown History mcg (2,000 unit) capsule ferrous sulfate 325 mg (65 mg 325 mg PO QDAY 12/02/23 Unknown History iron) tablet lansoprazole 30 mg capsule,delayed 30 mg PO QDAY 12/02/23 Unknown History release Allergy/AdvReac Type Severity Reaction Status Date / Time No Known Allergies Allergy Verified 12/03/23 11:33 Surgical History S/P excision of lipoma History of appendectomy Social History current occupational status: employed Smoking Status: Never smoker alcohol intake: never ROS ROS ED Constitutional Constitutional ED: Denies chills or fever(s) Eyes Eyes: Denies blurry vision or change in vision ENT ENT ED: Denies rhinorrhea or sore throat Cardiovascular Cardiovascular: Denies chest pain or palpitations Respiratory/Chest Respiratory/Chest: Denies cough or dyspnea Gastrointestinal Gastrointestinal: Reports abdominal pain, diarrhea and nausea; Denies melena or vomiting Genitourinary Genitourinary ED: Reports urinary frequency; Denies dysuria or hematuria Musculoskeletal Musculoskeletal: Denies back pain or neck pain Integumentary Denies abscess or rash Neurologic Neurologic: Denies headache(s) or weakness Allergic/Immunologic Allergic/Immunologic ED: Denies mouth swelling or urticaria EXAM Physical Exam Const Vital Signs: 12/03/23 11:32 12/03/23 14:43 Temperature 97.8 F Temperature Source Temporal Pulse Rate 87 76 Respiratory Rate 16 15 Blood Pressure 147/95 H 127/63 H Blood Pressure Mean 112 84 Pulse Ox 99 98 Oxygen Delivery Method Room Air Room Air Positive well nourished and well developed General Appearance ED: well developed and NAD HEENT Reports moist mucous membranes Resp normal respiratory effort and clear to auscultation bilaterally Cardio regular rate and regular rhythm GI non-distended Palpation: soft and tender LLQ, RLQ, periumbilical and suprapubic; Negative for guarding or rebound tenderness present Neuro CN's II-XII intact bilaterally, moves all extremities and no sensory deficits noted Sensorium / Orientation: alert Motor Exam: strength 5/5 throughout Psych mental status grossly normal MDM MDM MDM Narrative Medical decision making narrative: Differential diagnosis includes gastroenteritis, viral illness, urinary tract infection, ureteral calculus, pancreatitis, and dehydration. CBC will be obtained to assess for leukocytosis and anemia. Comprehensive metabolic profile will be obtained to assess for hepatic function, renal function, and electrolyte abnormality. Lipase will be obtained to assess for pancreatitis. Urinalysis will be obtained to assess for urinary tract infection and hematuria. Lab Data Attestation: I reviewed the patient's lab results. Lab results narrative: CBC was reviewed and was within normal limits. Comprehensive metabolic profile was reviewed and was within normal limits. Lipase was reviewed and is normal. Urinalysis was reviewed. There is no evidence of urinary tract infection or hematuria. Labs: Laboratory Results - last 24 hr 12/03/23 12/03/23 12:24 14:16 WBC 6.4 RBC 4.54 Hgb 14.1 Hct 43.3 MCV 95.4 MCH 31.1 MCHC 32.6 RDW Std Deviation 41.6 RDW Coeff of Mary Ellen 12.0 Plt Count 240 MPV 10.9 Immature Gran % (Auto) 0.300 Neut % (Auto) 73.6 H Lymph % (Auto) 15.3 L Fisher % (Auto) 8.1 Eos % (Auto) 2.2 Baso % (Auto) 0.5 Absolute Neuts (auto) 4.7 Absolute Lymphs (auto) 0.98 Nucleated RBC % 0 Sodium 137 Potassium 4.1 Chloride 105 Carbon Dioxide 30.0 Anion Gap 3 L BUN 17 Creatinine 0.72 Estim Creat Clear Calc 100.13 Est GFR (MDRD) Af Amer 108 Est GFR (MDRD) Non-Af 89 BUN/Creatinine Ratio 23.7 H Glucose 96 Calcium 8.8 Total Bilirubin 0.60 AST 12 L ALT 19 Alkaline Phosphatase 72 Total Protein 7.1 Albumin 3.7 Globulin 3.4 Albumin/Globulin Ratio 1.1 Lipase 37 Urine Color Yellow Urine Clarity Clear Urine pH 7.0 Ur Specific [place] 1.010 Urine Protein 15 H Urine Glucose (UA) Normal Urine Ketones Negative Urine Occult Blood 10 H Urine Nitrite Negative Urine Bilirubin Negative Urine Urobilinogen Normal Ur Leukocyte Esterase Negative Urine RBC 0-5 SEEN Urine WBC 0 SEEN Ur Squamous Epith Cells 0-5 SEEN Urine Bacteria RARE Urine Mucus 0 SEEN Treatment and Re-Evaluation :: Patient was advised of her findings. Patient was instructed to follow-up with her primary care physician in 5 to 7 days. Patient was instructed to start with a bland diet and advance as tolerated. Patient was instructed to return if worse in any way. Patient understood and was agreeable with the plan. All questions were answered. Discharge Plan Triage Chief Complaint: Abd Pain ED Provider: Tomas Whitlock Dx/Rx/DC Orders Clinical Impression: Abdominal pain, Body mass index (BMI) of 30.0 to 39.9 Instructions: ED Abdominal Pain Unkn Cause Fem Prescriptions: No Action ferrous sulfate 325 mg (65 mg iron) tablet 325 mg PO QDAY cholecalciferol (vitamin D3) 50 mcg (2,000 unit) capsule 50 mcg PO QDAY lansoprazole 30 mg capsule,delayed release(DR/EC) 30 mg PO QDAY ibuprofen 800 mg tablet 800 mg PO Q8H PRN (Reason: pain) Qty: 20 0RF Primary Care Provider: Alma Velez Referrals: Alma Velez, [Primary Care Provider] - 5-7 Days Print Language: Persian Disposition Disposition: Home, Self Care
[2023-12-03 12:29] LABS: Absolute Lymphocyte Count 0.98 X10^3/uL (0.83-4.51); Absolute Neutrophil Count 4.7 X10^3/uL (2.0-7.7); Basophil# 0.03 X10^3/uL; Basophil% 0.5 % (0-1); Eosinophil# 0.14 X10^3/uL; Eosinophils% 2.2 % (0-5); Hematocrit 43.3 % (37-47); Hemoglobin 14.1 g/dL (12.0-15.0); Lymphocyte # 0.98 X10^3/ul (0.83-4.51); Lymphocyte % 15.3 % (19-41); Mean Corp Hgb Conc 32.6 g/dL (32-36); Mean Corpuscular Hgb 31.1 pg (27.0-32.0); Mean Corpuscular Volume 95.4 fL (81-99); Mean Platelet Vol. 10.9 fl (6.2-12.0); Monocyte# 0.52 X10^3/uL; Monocyte% 8.1 % (0-10); NRBC Flagged by Analyzer 0 % (0-5); Neutrophil # 4.73 X10^3/uL (2.7-7.7); Neutrophil % 73.6 % (47-70); Platelet Count 240 K/mm3 (150-450); RBC Distribution Width SD 41.6 fl (35.1-43.9); Red Blood Count 4.54 M/mm3 (4.2-5.4); White Blood Count 6.4 K/mm3 (4.4-11.0)
[2023-12-03 12:49] LABS: ALB/GLOB Ratio 1.1 RATIO (0.9-2.4); AST(SGOT) 12 U/L (15-37); Alanine Aminotransfer ALT/SGPT 19 U/L (13-56); Albumin, Serum 3.7 g/dL (3.2-5.0); Alkaline Phosphatase 72 U/L (45-117); Anion Gap 3 (5-15); BUN 17 mg/dL (7-18); BUN/Creat Ratio 23.7 RATIO (10-20); Calcium,Total 8.8 mg/dL (8.5-10.1); Chloride 105 mmol/L (98-107); Creatinine, Serum 0.72 mg/dL (0.55-1.02); EST Glomerular Filtration Rate 89 mL/min (>60); Est Glom Filt Rate - Afr Amer 108 mL/min (>60); Estimated Creatinine Clearance 100.13 ml/min; Globulin 3.4 g/dL (2.2-4.2); Glucose 96 mg/dL (74-106); Lipase 37 U/L (13-75); Potassium 4.1 mmol/L (3.5-5.1); Protein, Total 7.1 g/dL (6.4-8.2); Sodium Level 137 mmol/L (136-145)
[2023-12-03] MEDS: Dicyclomine 20 MG/2 ML Vial IM (12:54)
[2023-12-03] MEDS: Ondansetron 4 MG/2 ML Vial IV (12:54)
[2023-12-03 14:19] LABS: Mucous, Urine 0 SEEN /hpf (<or=2+); White Blood Cells 0 SEEN /hpf (0-5)
[2023-12-03 14:25] LABS: Color, Urine Yellow (Yellow); Glucose, Dipstick Normal (Normal); Ketone-Dipstick Negative (Negative); Leukocyte Esterase-Dipstick Negative /ul (Negative); Nitrite-Dipstick Negative (Negative); Occult Blood-Urine 10 /ul (Negative); Protein-Dipstick 15 mg/dl (Negative); Urine Bilirubin Dipstick Negative (Negative); Urine Clarity Clear (Clear); Urine Urobilinogen Normal (Normal)
[2023-12-03 14:37] LABS: Squamous Epithelial Cells - UA 0-5 SEEN /hpf (5-10)
[2023-12-03 14:38] LABS: Bacteria RARE /hpf (None Seen); Red Blood Cells-Urine 0-5 SEEN /hpf (0-5)
[2023-12-03 14:43] VITALS: BP 127/63; PULSE 76; RESP 15; O2SAT 98
[2023-12-03 15:54] VITALS: BP 128/83; PULSE 72; RESP 16; TEMP 36.9; O2SAT 99
== END 2023-12-03 15:55 | disposition home or self-care (01) ==
PROVIDERS: Emergency Provider Emergency Medicine; PCP Family Medicine; Referring Provider Emergency Medicine; Visit Provider Emergency Medicine
DX: R10.9 Unspecified abdominal pain (principal); Z90.49 Acquired absence of other specified parts of digestive tract
CPT/HCPCS: 80053; 81001; 83690; 85025; 99283; A4216; J2405

== ENCOUNTER → 2024-01-05 | Outpatient (CLI) | payer MEDICAID, SELFPAY ==
[2024-01-05 13:03] LABS: Free T3 2.4 pg/mL (2.18-3.98)
== END | disposition home or self-care (01) ==
LOC: LAB.FUTURE 10:10 → VSLAB 01-06 07:04
PROVIDERS: PCP Family Medicine; Visit Provider Family Medicine
DX: E06.3 Autoimmune thyroiditis (principal)
CPT/HCPCS: 36415; 84443; 84481

== ENCOUNTER 2024-02-17 14:51 | Emergency (ER) | payer MEDICAID, SELFPAY ==
[2024-02-17 14:53] VITALS: BP 155/107; PULSE 88; RESP 16; TEMP 36.2; O2SAT 98; BMI 36.1
--- NOTE | 2024-02-17 15:35 | ED.VIS.DYS ---
HPI History of Present Illness Chief Complaint: Cold Sx Narrative Narrative: 58-year-old female presents with flulike symptoms that she has had for the last 2 days. Her symptoms began on Thursday with a sore throat. She has developed subjective fever, chills, multiple myalgias and arthralgias. She also developed diarrhea. She states has been 2 days and has not been improving. Her is sick with the same symptoms but does not feel as bad. She states this feels similar to when she had COVID at the beginning of the pandemic 4 years ago. [facility] Medical History Multiple lipomas Anemia Low TSH level GERD (gastroesophageal reflux disease) Home Medications ?Medication ?Instructions ?Recorded ?Last Taken ?Type ibuprofen 800 mg tablet 800 mg PO Q8H PRN pain #20 tabs 10/27/22 Unknown Rx cholecalciferol (vitamin D3) 50 50 mcg PO QDAY 12/02/23 Unknown History mcg (2,000 unit) capsule ferrous sulfate 325 mg (65 mg 325 mg PO QDAY 12/02/23 Unknown History iron) tablet lansoprazole 30 mg capsule,delayed 30 mg PO QDAY 12/02/23 Unknown History release Allergy/AdvReac Type Severity Reaction Status Date / Time No Known Allergies Allergy Verified 02/17/24 14:54 Surgical History S/P excision of lipoma History of appendectomy Social History current occupational status: employed Smoking Status: Never smoker alcohol intake: never ROS ROS ED ROS Narrative Constitutional: Subjective fever, positive chills. HEENT: Positive sore throat. No neck pain. No loss of vision. No rhinorrhea. Cardiovascular: No chest pain. No palpitations. No pedal edema. Respiratory: Occasional cough, positive shortness of breath. Abdominal: No abdominal pain. No nausea. No vomiting. Diarrhea. Genitourinary: No dysuria. No hematuria. Musculoskeletal: Multiple myalgias and arthralgias. Neurologic: No headaches. No dizziness. No lightheadedness. Skin: No rash. No change in color. EXAM Physical Exam Narrative Exam Narrative: Afebrile. Vital signs noted. Nontoxic-appearing. Positive nasal congestion. Mild pharyngeal erythema. Neck soft and supple without meningismus. Airway patent. Cardiovascular examination regular rate and rhythm. Lungs clear to auscultation bilaterally. Abdomen soft nontender with positive bowel sounds. Neurological examination nonfocal and nonlateralizing. Const Vital Signs: 02/17/24 14:53 02/17/24 14:57 Temperature 97.2 F L Temperature Source Temporal Pulse Rate 88 Respiratory Rate 16 Respiratory Effort Normal Non-Labored Respiratory Pattern Normal Blood Pressure 155/107 H Blood Pressure Mean 123 Pulse Ox 98 Oxygen Delivery Method Room Air MDM MDM MDM Narrative Medical decision making narrative: Differential diagnosis includes but not limited to viral syndrome versus pneumonia versus bronchitis. She states that the worst symptoms is the body aches. She is afebrile here and pulse ox is 98% on room air. Chest x-ray and 2 views will be obtained as well as respiratory swab for COVID, influenza, and RSV. Her inquired about antibiotics but if this is a viral infection they would not be indicated. Chest x-ray interpreted by myself independently shows no evidence of an acute pneumonia or pneumothorax, no consolidation. I do not feel antibiotics are indicated. I reviewed the radiology report which confirms my independent interpretation. In review of her respiratory swabs, she is positive for COVID. Treatment be symptomatic. Patient requested a work note for the next 2 days. She will take [id number] medications as needed. I feel she can be discharged safely home with follow-up. She is not hypoxic so I do not feel she requires steroids. Return instructions to the emergency department were reviewed. Disposition is discharged home in stable condition. History & Record Review Discussion w/independent historian: Patient Radiography Chest X-Ray - ED: Read by ED Physician and Read by Radiologist Diagnostic Testing: Clinical Impression(s) from Imaging Studies Chest X-Ray 02/17/24 15:50 IMPRESSION: No radiographic evidence of acute cardiopulmonary disease. Electronically Signed: Ramu Navas MD at 16:42 EST , Discharge Plan Triage Chief Complaint: Cold Sx ED Provider: Morales Rey Dx/Rx/DC Orders Clinical Impression: COVID, Viral syndrome Instructions: Coronavirus Disease 2019 (COVID-19): Caring for Yourself or Others, COVID-19 and the Flu: What's the Difference?, ED Viral Syndrome (Adult) Prescriptions: No Action ferrous sulfate 325 mg (65 mg iron) tablet 325 mg PO QDAY cholecalciferol (vitamin D3) 50 mcg (2,000 unit) capsule 50 mcg PO QDAY lansoprazole 30 mg capsule,delayed release(DR/EC) 30 mg PO QDAY ibuprofen 800 mg tablet 800 mg PO Q8H PRN (Reason: pain) Qty: 20 0RF Stand Alone Forms: ED Work / School Excuse Primary Care Provider: Alma Velez Referrals: Alma Velez, DO [Primary Care Provider] - 3-5 Days if not improving Print Language: Luxembourgish Disposition Disposition: Home, Self Care
--- NOTE | 2024-02-17 15:50 | RAD_ITS ---
INDICATION: Cough, shortness of breath EXAMINATION/TECHNIQUE: X-RAY - XR Chest 2 Views COMPARISON: No relevant prior comparison study available FINDINGS: LINES/DEVICES: None. LUNGS: No consolidation, edema or effusion. No pneumothorax. MEDIASTINUM AND CARDIOVASCULAR STRUCTURES: Cardiac silhouette not enlarged. Central airways and mediastinal contour are unremarkable. BONES AND SOFT TISSUES: Unremarkable. RAD/Chest PA and Lateral IMPRESSION: No radiographic evidence of acute cardiopulmonary disease. Electronically Signed: Ramu Navas MD at 16:42 EST ,
== END 2024-02-17 17:06 | disposition home or self-care (01) ==
PROVIDERS: Emergency Provider Emergency Medicine; PCP Family Medicine; Referring Provider Emergency Medicine; Visit Provider Emergency Medicine
DX: U07.1 COVID-19 (principal); B34.9 Viral infection, unspecified; D64.9 Anemia, unspecified; K21.9 Gastro-esophageal reflux disease without esophagitis
CPT/HCPCS: 71046; 87631; 99282

== ENCOUNTER → 2024-08-08 | Outpatient (CLI) | payer MEDICAID, SELFPAY ==
--- OUTSIDE RECORDS SUMMARY | 2024-08-08 23:11 | XMS RPT_ITS | CCD ---
Author Organization [facility] Care Team Providers Care Nursing Informatics Specialist Name Role Phone PHYSICIAN, NONE Primary Care Physician Unavailab NEFTALY Noland DO Primary Care Physician OSCAR PALACIOS MD Attending Unavailable PHYSICIAN, NONE Primary Care Unavailable TAMMY GARCIA DO Attending Unavailable ROSIE DONEFTALY Primary Care Unavailable Rosie, Alma Referring Unavailable Rosie, Alma Primary Care Unavailable Rosie, Alma Attending Unavailable Rosie, Alma Referring Unavailable Rosie, Alma Primary Care Unavailable Jared Ruiz Attending Unavailable Rosie, Alma Referring Unavailable Rosie, Alma Primary Care Unavailable Jared Ruiz Attending Unavailable Rosie, Alma Referring Unavailable Robert Krause Attending Unavailable Rosie, Alma Primary Care Unavailable Tomas Whitlock Attending Unavailable Tomas Whitlock Referring Unavailable Rosie, Alma Primary Care Unavailable Morales Rey Attending Unavailable ReodicMorales luke Referring Unavailable Rosie, Alma Primary Care Unavailable Rosie, Alma Primary Care Unavailable Rosie Alma Attending Unavailable Rosie, Alma Primary Care Unavailable Rosie Alma Attending Unavailable Rosie, Alma Primary Care Unavailable Rosie, Alma Attending Unavailable AMBER CONSTANTINO DO Attending Unavailable ROSIE DO, NEFTALY Primary Care Unavailable ROSIE LEWIS NEFTALY Primary Care Unavailable PHYSICIAN, NONE Attending Unavailable Allergies Allergy Classification Reported Allergen(s) Allergy Type Date of Onset Reaction(s) Facility (1 source) Soy protein Drug allergy (disorder) 05-24-2024 [facility] Repository Medications Current Medications Medication Drug Class(es) Dates Sig (Normalized) Sig (Original) clindamycin 300 mg oral capsule (1 source) Lincosamide Antibacterial Start: 10-09-2022 End: 10-19-2022 clindamycin 300 mg oral capsule Dose : 300 mg = 1 cap(s), Oral, q6h, X 10 day(s), # 40 cap(s), 0 Refill(s), 10/19/22 8:52:00 PM EDT, 100 Start Date: 10/09/22 Stop Date: 10/19/22 Status: Ordered ibuprofen 800 mg oral tablet (2 sources) Nonsteroidal Anti-inflammatory Drug Start: 10-27-2022 take 800 mg by mouth every eight hours Ibuprofen Active 800 MG PO Q8H October 26, 2022 11:00pm naproxen 500 mg oral tablet (1 source) Nonsteroidal Anti-inflammatory Drug Start: 10-09-2022 End: 10-14-2022 naproxen 500 mg oral tablet Dose : 500 mg = 1 tab(s), Oral, BID, X 5 day(s), # 10 tab(s), 0 Refill(s), 10/14/22 8:53:00 PM EDT Start Date: 10/09/22 Stop Date: 10/14/22 Status: Ordered penicillin v potassium 500 mg oral tablet (2 sources) Start: 10-27-2022 take 500 mg by mouth four times daily Penicillin V Potassium Active 500 MG PO 4 TIMES DAILY October 26, 2022 11:00pm Problems Active Problems Problem Classification Problem Date Documented Da te Episodic/Chronic Allergic reactions (1 source) Unspecified contact dermatitis, unspecified cause; Translations: [Unspecified contact dermatitis, unspecified cause] Onset: 05-25-2024 Episodic Disorders of teeth and jaw (3 sources) Disorder of teeth AND/OR supporting structures; Translations: [Other specified disorders of teeth and supporting structures] Onset: 10-09-2022 Episodic Other connective tissue disease (1 source) Foot pain; Translations: [Pain in right foot] 02-13-2023 Episodic Other non-traumatic joint disorders (1 source) Acute ankle pain; Translations: [Pain in right ankle and joints of right foot] 02-13-2023 Episodic Other non-traumatic joint disorders (3 sources) Pain in right knee; Translations: [Pain of right knee joint] Onset: 05-16-2023 Episodic Other skin disorders (1 source) Rash and other nonspecific skin eruption; Translations: [Rash and other nonspecific skin eruption] Onset: 05-25-2024 Episodic Thyroid disorders (1 source) Autoimmune thyroiditis; Translations: [Autoimmune thyroiditis] Onset: 02-04-2024 Chronic Unclassified (1 source) Cough, unspecified; Translations: [Cough, unspecified] Onset: 03-14-2024 Past or Other Problems Problem Classification Problem Date Documented Da te Episodic/Chronic Abdominal pain (1 source) Unspecified abdominal pain; Translations: [Unspecified abdominal pain] Onset: 12-24-2023 Episodic Other and unspecified benign neoplasm (1 source) Benign lipomatous neoplasm, unspecified; Translations: [Benign lipomatous neoplasm, unspecified] Onset: 12-03-2023 Episodic Other screening for suspected conditions (not mental disorders or infectious disease) (2 sources) Encounter for screening for other metabolic disorders; Translations: [Encounter for screening for other metabolic disorders] Onset: 09-02-2023 Episodic Residual codes; unclassified (1 source) Other general symptoms and signs; Translations: [Other general symptoms and signs] Onset: 09-02-2023 Episodic Thyroid disorders (1 source) Disorder of thyroid, unspecified; Translations: [Disorder of thyroid, unspecified] Onset: 09-02-2023 Episodic Results Test Name Value Interpretation Reference Range Facility Urgent Care Visit Reporton 0 05-24-2024 Urgent Care Visit Report [facility] [address], [address] [place] [address] OFFICE VISIT Date of Service: 05/24/24 MR#: [id number] Acct: [id number] Name: OLE BELTRAN Rep #: [id number] : 1965 Provider: KIET Dennis Age/Sex: 58/F [place] [facility] [place] Status: Signed Intake Vital Signs 02/17/24 14:53 05/24/24 14:38 Height 5 ft 5 in 5 ft 5 in Weight: 216 lb BMI 35.9 BP 128/82 H Position Sitting Pulse 79 Temp 98.9 F Temp Source Oral Pulse Oximetry (%) 95 Oxygen Delivery Method room air Intake Visit Reasons: RASH ON LEGS AND BACK Accompanied by: Allergies soy Allergy (Verified 05/24/24 14:34) Other Medications ???Medication ???Instructions ???Recorded ???Confirmed ???Type ibuprofen 800 mg tablet 800 mg PO Q8H PRN pain #20 tabs 12/02/23 Rx cholecalciferol (vitamin D3) 50 50 mcg PO QDAY 12/02/23 05/24/24 H istory mcg (2,000 unit) capsule ferrous sulfate 325 mg (65 mg 325 mg PO QDAY 12/02/23 05/24/24 H istory iron) tablet lansoprazole 30 mg capsule,delayed 30 mg PO QDAY 12/02/23 05/24/24 History release prednisone 10 mg tablet 10 mg PO DAILY #30 tabs 05/24/24 0 05/24/24 Rx Nurse's Note: Patient has a rash on the back of her legs and back and buttocks. Patient noticed them a couple days ago and this morning it really itches. [facility] Medical History (Updated 05/24/24 @ 15:26 by Robert SANTA, PA) Allergic dermatitis Multiple lipomas Anemia Low TSH level GERD (gastroesophageal reflux disease) Surgical History S/P excision of lipoma History of appendectomy Social History current occupational status: employed Smoking Status: Never smoker alcohol intake: never HPI HPI Details: OLE BELTRAN, is a 58 F who presents to the office today for initial evaluation for an erythematous pruritic rash appreciated to CIERRA MADDEN, A/P torso of unknown etiology. No new exposures to new soaps or lotions or detergents or clothing or environmental exposure. No exposure to new animals as far she is aware. No luwv-fyi-zznucar products been taken to assist. No complaints of constricted/pruritic airway or chest pain/shortness of breath/dyspnea on exertion. No other associated symptoms and no other alleviating/aggravatin g factors. ROS Const Constitutional: No other (as above) Exam Const General: cooperative, healthy appearing and no acute distress Orientation: alert and awake [facility] Head: normal to inspection Ears: hearing grossly normal bilaterally and external ears normal Nose: external nose normal Eyes General: appearance normal, both eyes and all related structures Neck Neck: normal visual inspection, no lymphadenopathy, no meningeal signs and supple Chest Chest palpation inspection: normal inspection of the chest Resp Effort Inspection: normal respiratory effort and able to speak in complete sentences Cardio Rate: regular rate Pulses: radial pulses present GI Inspection: normal to inspection Skin General: no rashes or lesions noted Other: Except fine clustered erythematous papular close lesions to BUE, BLE, A/P torso Neuro General: patient alert and patient awake Cognition: normal cognition Speech: speech normal Extrem General: normal to inspection Psych Appearance: grossly normal Mental Status: mental status grossly normal Mood: congruent mood Affect: normal affect Speech and Movement: speech and movement normal Attitude: cooperative Coding Level of Care Code Off vis,new,level 3 Diagnoses Allergic dermatitis L23.9 Assessment and Plan Assessment and Plan (1) Allergic dermatitis: Status: Acute Plan: Examination findings reviewed with patient in office today who acknowledged understanding. Prednisone as prescribed today. Supportive measures as instructed today. Follow-up with PCP or dermatology in 5 to 7 days should symptoms not resolved, sooner should symptoms only worsen or any other concerns develop. Patient states acknowledging understanding of the above. This note was generated with [employer] dictation software. It may contain incorrect words, spelling, and punctuation that were not noted in checking the note before signing. Medications: New prednisone 4 tablets daily x3 days, then 3 tablets daily x3 days, then 2 tablets daily x3 days, then 1 tablet daily x3 days 10 mg PO DAILY 30 tabs 0RF 05/24/24 1530 Date Robert Pierre Signature: Date (if applicable) CC: Normal [facility] Chest PA and Lateralon 02-16 Chest PA and Lateral [facility] Imaging Services [address] [place], [place] [address] Chest PA and Lateral MR#: [id number] Acct: [id number] Name: OLE BELTRAN Rep #: [id number] : 1965 F 58 From: Ramu Casanova PCP: Alma Velez DO Status: REG ER Study: Chest PA and Lateral Date of Exam: 02/17/24 Exam# [id number] Ordering Dr: Morales Rey MD [id number] INDICATION: Cough, shortness of breath EXAMINATION/TECHNIQUE: X-RAY - XR Chest 2 Views COMPARISON: No relevant prior comparison study available FINDINGS: LINES/DEVICES: None. LUNGS: No consolidation, edema or effusion. No pneumothorax. MEDIASTINUM AND CARDIOVASCULAR STRUCTURES: Cardiac silhouette not enlarged. Central airways and mediastinal contour are unremarkable. BONES AND SOFT TISSUES: Unremarkable. RAD/Chest PA and Lateral IMPRESSION: No radiographic evidence of acute cardiopulmonary disease. Electronically Signed: Ramu Navas MD at 16:42 EST , CC: Dr. Morales Rey MD; Alma Velez DO Sales Specialist: Signed Normal [facility] Emergency Department Summary on 02-17-2024 Emergency Department Summary [facility] Medical Records Department [address] [place] [id number] Emergency Department Summary 02/17/24 MR#: [id number] Acct: [id number] Name: OLE BELTRAN Rep #: [id number] : 1965 58 From: Morales Rey MD PCP: Alma Velez DO Status:REG ER Location: ED HPI History of Present Illness Chief Complaint: Cold Sx Narrative Narrative: 58-year-old female presents with flulike symptoms that she has had for the last 2 days. Her symptoms began on Thursday with a sore throat. She has developed subjective fever, chills, multiple myalgias and arthralgias. She also developed diarrhea. She states has been 2 days and has not been improving. Her is sick with the same symptoms but does not feel as bad. She states this feels similar to when she had COVID at the beginning of the pandemic 4 years ago. [facility] Medical History Multiple lipomas Anemia Low TSH level GERD (gastroesophageal reflux disease) Home Medications ???Medication ???Instructions ???Recorded ???Last Taken ???Type ibuprofen 800 mg tablet 800 mg PO Q8H PRN pain #20 tabs 10/27/22 Unknown Rx cholecalciferol (vitamin D3) 50 50 mcg PO QDAY 12/02/23 Unknown History mcg (2,000 unit) capsule ferrous sulfate 325 mg (65 mg 325 mg PO QDAY 12/02/23 Unknown History iron) tablet lansoprazole 30 mg capsule,delayed 30 mg PO QDAY 12/02/23 Unknown History release Allergy/AdvReac Type Severity Reaction Status Date / Time No Known Allergies Allergy Verified 02/17/24 14:54 Surgical History S/P excision of lipoma History of appendectomy Social History current occupational status: employed Smoking Status: Never smoker alcohol intake: never ROS ROS ED ROS Narrative Constitutional: Subjective fever, positive chills. HEENT: Positive sore throat. No neck pain. No loss of vision. No rhinorrhea. Cardiovascular: No chest pain. No palpitations. No pedal edema. Respiratory: Occasional cough, positive shortness of breath. Abdominal: No abdominal pain. No nausea. No vomiting. Diarrhea. Genitourinary: No dysuria. No hematuria. Musculoskeletal: Multiple myalgias and arthralgias. Neurologic: No headaches. No dizziness. No lightheadedness. Skin: No rash. No change in color. EXAM Physical Exam Narrative Exam Narrative: Afebrile. Vital signs noted. Nontoxic-appearing. Positive nasal congestion. Mild pharyngeal erythema. Neck soft and supple without meningismus. Airway patent. Cardiovascular examination regular rate and rhythm. Lungs clear to auscultation bilaterally. Abdomen soft nontender with positive bowel sounds. Neurological examination nonfocal and nonlateralizing. Const Vital Signs: 02/17/24 14:53 02/17/24 14:57 Temperature 97.2 F L Temperature Source Temporal Pulse Rate 88 Respiratory Rate 16 Respiratory Effort Normal Non-Labored Respiratory Pattern Normal Blood Pressure 155/107 H Blood Pressure Mean 123 Pulse Ox 98 Oxygen Delivery Method Room Air MDM MDM MDM Narrative Medical decision making narrative: Differential diagnosis includes but not limited to viral syndrome versus pneumonia versus bronchitis. She states that the worst symptoms is the body aches. She is afebrile here and pulse ox is 98% on room air. Chest x-ray and 2 views will be obtained as well as respiratory swab for COVID, influenza, and RSV. Her inquired about antibiotics but if this is a viral infection they would not be indicated. Chest x-ray interpreted by myself independently shows no evidence of an acute pneumonia or pneumothorax, no consolidation. I do not feel antibiotics are indicated. I reviewed the radiology report which confirms my independent interpretation. In review of her respiratory swabs, she is positive for COVID. Treatment be symptomatic. Patient requested a work note for the next 2 days. She will take [id number] medications as needed. I feel she can be discharged safely home with follow-up. She is not hypoxic so I do not feel she requires steroids. Return instructions to the emergency department were reviewed. Disposition is discharged home in stable condition. History Record Review Discussion w/independent historian: Patient Radiography Chest X-Ray - ED: Read by ED Physician and Read by Radiologist Diagnostic Testing: Clinical Impression(s) from Imaging Studies Chest X-Ray 02/17/24 15:50 IMPRESSION: No radiographic evidence of acute cardiopulmonary disease. Electronically Signed: Ramu Navas MD at 16:42 EST , Dis (more content not included)... Normal [facility] M100.678on 02-17-2024 SARS-CoV-2 (COVID-19) Ab IA Ql FLUABV+SARS-CoV-2+RSV Pnl Resp SHITAL+probe Copy of report sent to Infection Control Printer [id number] 02/17/24 7848 [facility]. FLUABV+SARS-CoV-2+RSV Pnl Resp SHITAL+probe RESULTS CALLED TO Terry AMES 02/17/24 1628 Fadumo Murry. REPORT READ BACK BY . SAME SARS-CoV-2 (COVID 19) A Positive A INFLUENZA A Negative INFLUENZA B Negative RSV PCR Negative SARS-CoV-2 (COVID 19) Normal [facility] Comment on above: Performed By: #### M 100.678 #### [facility] [address] [place], [address] Free T3on 01-05-2024 Free T3 [Mass/Vol] 2.4 pg/mL Normal 2.18-3.[address] [facility] Comment on above: Performed By: #### L 501.78776, L501.9520 #### [facility] [address] [place], [address] Thyroid Stim Hormone (TSH)on 01-05-2024 TSH 1.630 uIU/mL Normal 0.358-3.740 [facility] Comment on above: Performed By: #### L 501.56771, L501.9520 #### [facility] [address] [place], [address] CBC W/Diff, Automatedon - Absolute Lymph 0.98 X10 3/uL Normal 0.83-4.51 [facility] Comment on above: Performed By: #### L 100.0100, L501.2450, L500.4050 #### [facility] [address] [place], [address] Absolute Neut 4.7 X10 3/uL Normal 2.0-7.7 [facility] Comment on above: Performed By: #### L 100.0100, L501.2450, L500.4050 #### [facility] [address] [place], [address] Basophils/100 WBC (Bld) 0.5 % Normal 0-1 [facility] Comment on above: Performed By: #### L 100.0100, L501.2450, L500.4050 #### [facility] [address] [place], [address] Eosinophils/100 WBC (Bld) 2.2 % Normal 0-5 [facility] Comment on above: Performed By: #### L 100.0100, L501.2450, L500.4050 #### [facility] [address] [place], [address] Erythrocyte distribution width (RBC) [Ratio] 12.0 % Normal 11.6-14.6 [facility] Comment on above: Performed By: #### L 100.0100, L501.2450, L500.4050 #### [facility] [address] [place], [address] Hematocrit (Bld) [Volume fraction] 43.3 % Normal 37-47 [facility] Comment on above: Performed By: #### L 100.0100, L501.2450, L500.4050 #### [facility] [address] [place], [address] Hemoglobin (Bld) [Mass/Vol] 14.1 g/dL Normal 12.0-15.0 [facility] Comment on above: Performed By: #### L 100.0100, L501.2450, L500.4050 #### [facility] [address] [place], [address] IG% 0.300 Normal 0.0-0.9 [facility] Comment on above: Result Comment: IG% - Immature Granulocytes (promyelocytes, myelocytes and metamyelocytes) > 1% indicates that a LEFT SHIFT is Present. Performed By: #### L 100.0100, L501.2450, L500.4050 #### [facility] [address] [place], [address] Lymphocytes/100 WBC (Bld) 15.3 % Low 19-41 [facility] Comment on above: Performed By: #### L 100.0100, L501.2450, L500.4050 #### [facility] [address] [place], [address] MCH (RBC) [Entitic mass] 31.1 pg Normal 27.0-32.0 [facility] Comment on above: Performed By: #### L 100.0100, L501.2450, L500.4050 #### [facility] [address] [place], [address] MCHC (RBC) [Mass/Vol] 32.6 g/dL Normal 32-36 [facility] Comment on above: Performed By: #### L 100.0100, L501.2450, L500.4050 #### [facility] [address] [place], [address] MCV (RBC) [Entitic vol] 95.4 fL Normal 81-99 [facility] Comment on above: Performed By: #### L 100.0100, L501.2450, L500.4050 #### [facility] [address] [place], [address] Monocytes/100 WBC (Bld) 8.1 % Normal 0-10 [facility] Comment on above: Performed By: #### L 100.0100, L501.2450, L500.4050 #### [facility] [address] [place], [address] Neutrophils/100 WBC (Bld) 73.6 % High 47-70 [facility] Comment on above: Performed By: #### L 100.0100, L501.2450, L500.4050 #### [facility] [address] [place], [address] Nucleated RBC (Bld) [#/Vol] 0 10*3/uL Normal 0-5 [facility] Comment on above: Performed By: #### L 100.0100, L501.2450, L500.4050 #### [facility] [address] [place], [address] Platelet mean volume (Bld) [Entitic vol] 10.9 fL Normal 6.2-12.0 [facility] Comment on above: Performed By: #### L 100.0100, L501.2450, L500.4050 #### [facility] [address] [place], [address] Platelets (Bld) [#/Vol] 240 10*3/uL Normal 150-450 [facility] Comment on above: Performed By: #### L 100.0100, L501.2450, L500.4050 #### [facility] [address] [place], [address] RBC (Bld) [#/Vol] 4.54 10*6/uL Normal 4.2-5.4 [facility] Comment on above: Performed By: #### L 100.0100, L501.2450, L500.4050 #### [facility] [address] [place], [address] RDW SD 41.6 fl Normal 35.1-43.9 [facility] Comment on above: Performed By: #### L 100.0100, L501.2450, L500.4050 #### [facility] [address] [place], [address] WBC (Bld) [#/Vol] 6.4 10*3/uL Normal 4.4-11.[address] [facility] Comment on above: Performed By: #### L 100.0100, L501.2450, L500.4050 #### [facility] [address] [place], [address] [facility] 12-03-2023 Albumin [Mass/Vol] 3.7 g/dL Normal 3.2-5.[address] [facility] Comment on above: Performed By: #### L 100.0100, L501.2450, L500.4050 #### [facility] [address] [place], [address] Albumin/Globulin [Mass ratio] 1.1 {ratio} Normal 0.9-2.4 [facility] Comment on above: Performed By: #### L 100.0100, L501.2450, L500.4050 #### [facility] [address] [place], [address] ALK P 72 U/L Normal 45-117 [facility] Comment on above: Performed By: #### L 100.0100, L501.2450, L500.4050 #### [facility] [address] [place], [address] ALT [Catalytic activity/Vol] 19 U/L Normal 13-56 [facility] Comment on above: Performed By: #### L 100.0100, L501.2450, L500.4050 #### [facility] [address] [place], [address] AST [Catalytic activity/Vol] 12 U/L Low 15-37 [facility] Comment on above: Performed By: #### L 100.0100, L501.2450, L500.4050 #### [facility] [address] [place], [address] Bilirubin [Mass/Vol] 0.60 mg/dL Normal 0.20-1.00 [facility] Comment on above: Result Comment: For patients on eltrombopag therapy, use of Dimension [place] TBIL is not recommended. Performed By: #### L 100.0100, L501.2450, L500.4050 #### [facility] [address] [place], [address] BUN/CRE 23.7 RATIO High 10-20 [facility] Comment on above: Performed By: #### L 100.0100, L501.2450, L500.4050 #### [facility] [address] [place], [address] CA,Total 8.8 mg/dL Normal 8.5-10.1 [facility] Comment on above: Performed By: #### L 100.0100, L501.2450, L500.4050 #### [facility] [address] [place], [address] Chloride [Moles/Vol] 105 mmol/L Normal 98-107 [facility] Comment on above: Performed By: #### L 100.0100, L501.2450, L500.4050 #### [facility] [address] [place], [address] CO2 [Moles/Vol] 30.0 mmol/L Normal 21.0-32.0 [facility] Comment on above: Performed By: #### L 100.0100, L501.2450, L500.4050 #### [facility] [address] [place], [address] Creatinine [Mass/Vol] 0.72 mg/dL Normal 0.55-1.02 [facility] Comment on above: Result Comment: The validity of the calculated GFR GFRAA in patients over 70 years has not been determined. Clinical correlation is essential. Performed By: #### L 100.0100, L501.2450, L500.4050 #### [facility] [address] [place], [address] ECRCL 100.13 ml/min Normal [facility] Comment on above: Performed By: #### L 100.0100, L501.2450, L500.4050 #### [facility] [address] [place], [address] EST GFR - AA 108 mL/min Normal >60 [facility] Comment on above: Result Comment: Afri can Rw[place]an GFR Calc Performed By: #### L 100.0100, L501.2450, L500.4050 #### [facility] [address] [place], [address] GAP 3 Low 5-15 [facility] Comment on above: Performed By: #### L 100.0100, L501.2450, L500.4050 #### [facility] [address] [place], [address] GFR/1.73 sq M.predicted among non-blacks MDRD (S/P/Bld) [Vol rate/Area] 89 mL/min/{1.73_m2} Normal >60 [facility] Comment on above: Result Comment: Non- GFR Calc Performed By: #### L 100.0100, L501.2450, L500.4050 #### [facility] [address] [place], [address] Globulin (S) [Mass/Vol] 3.4 g/dL Normal 2.2-4.2 [facility] Comment on above: Performed By: #### L 100.0100, L501.2450, L500.4050 #### [facility] [address] [place], [address] Glucose [Mass/Vol] 96 mg/dL Normal 74-[address] [facility] Comment on above: Performed By: #### L 100.0100, L501.2450, L500.4050 #### [facility] [address] [place], [address] Potassium [Moles/Vol] 4.1 mmol/L Normal 3.5-5.1 [facility] Comment on above: Performed By: #### L 100.0100, L501.2450, L500.4050 #### [facility] [address] [place], [address] Sodium [Moles/Vol] 137 mmol/L Normal 136-[address] [facility] Comment on above: Performed By: #### L 100.0100, L501.2450, L500.4050 #### [facility] [address] [place], [address] T PROT 7.1 g/dL Normal 6.4-8.2 [facility] Comment on above: Performed By: #### L 100.0100, L501.2450, L500.4050 #### [facility] [address] [place], [address] Urea nitrogen [Mass/Vol] 17 mg/dL Normal 7-18 [facility] Comment on above: Performed By: #### L 100.0100, L501.2450, L500.4050 #### [facility] [address] [place], [address] Emergency Department Summary on 12-03-2023 Emergency Department Summary [facility] Medical Records Department [address] [place] [address] Emergency Department Summary 12/03/23 MR#: [id number] Acct: [id number] Name: OLE BELTRAN Rep #: [id number] : 1965 58 From: Tomas Whitlock DO PCP: Alma Velez DO Status:DEP ER Location: ED HPI HPI - GI History of Present Illness Chief Complaint: Abd Pain Informant: patient Abdominal Pain/Flank Pain Onset: Yesterday Context: Gradual Onset Timing: Continuous Quality: Stabbing Location: RLQ and LLQ Worsened by: Nothing Relieved by: Antacids (Pepto-Bismol) Nausea/Vomiting/Emesis GI Symptom: Positive for Nausea; Negative for Vomiting Diarrhea/Melena/Hemato chezia GI Symptom: Positive for Diarrhea; Negative for Melena or Hematochezia Associated Symptoms Associated Symptoms: Positive for Frequency; Negative for Dysuria or Hematuria Narrative Narrative: Patient presents with abdominal pain that began yesterday. Patient states it is gradually gotten worse. Patient describes it as stabbing. Patient states it is mainly over the lower abdomen. Patient states she was taking Pepto-Bismol with no relief. Patient admits to some nausea but denies any vomiting. Patient admits to some diarrhea but denies any melena or hematochezia. Patient admits to urinary frequency but denies any dysuria or hematuria. Patient denies any fevers or chills. PFSH PFSH Medical History Multiple lipomas Anemia Low TSH level GERD (gastroesophageal reflux disease) Home Medications ???Medication ???Instructions ???Recorded ???Last Taken ???Type ibuprofen 800 mg tablet 800 mg PO Q8H PRN pain #20 tabs 10/27/22 Unknown Rx cholecalciferol (vitamin D3) 50 50 mcg PO QDAY 12/02/23 Unknown History mcg (2,000 unit) capsule ferrous sulfate 325 mg (65 mg 325 mg PO QDAY 12/02/23 Unknown History iron) tablet lansoprazole 30 mg capsule,delayed 30 mg PO QDAY 12/02/23 Unknown History release Allergy/AdvReac Type Severity Reaction Status Date / Time No Known Allergies Allergy Verified 12/03/23 11:33 Surgical History S/P excision of lipoma History of appendectomy Social History current occupational status: employed Smoking Status: Never smoker alcohol intake: never ROS ROS ED Constitutional Constitutional ED: Denies chills or fever(s) Eyes Eyes: Denies blurry vision or change in vision ENT ENT ED: Denies rhinorrhea or sore throat Cardiovascular Cardiovascular: Denies chest pain or palpitations Respiratory/Chest Respiratory/Chest: Denies cough or dyspnea Gastrointestinal Gastrointestinal: Reports abdominal pain, diarrhea and nausea; Denies melena or vomiting Genitourinary Genitourinary ED: Reports urinary frequency; Denies dysuria or hematuria Musculoskeletal Musculoskeletal: Denies back pain or neck pain Integumentary Denies abscess or rash Neurologic Neurologic: Denies headache(s) or weakness Allergic/Immunologic Allergic/Immunologic ED: Denies mouth swelling or urticaria EXAM Physical Exam Const Vital Signs: 10/17/24 11:32 12/03/23 14:43 Temperature 97.8 F Temperature Source Temporal Pulse Rate 87 76 Respiratory Rate 16 15 Blood Pressure 147/95 H 127/63 H Blood Pressure Mean 112 84 Pulse Ox 99 98 Oxygen Delivery Method Room Air Room Air Positive well nourished and well developed General Appearance ED: well developed and NAD HEENT Reports moist mucous membranes Resp normal respiratory effort and clear to auscultation bilaterally Cardio regular rate and regular rhythm GI non-distended Palpation: soft and tender LLQ, RLQ, periumbilical and suprapubic; Negative for guarding or rebound tenderness present Neuro CN's II-XII intact bilaterally, moves all extremities and no sensory deficits noted Sensorium / Orientation: alert Motor Exam: strength 5/5 throughout Psych mental status grossly normal MDM MDM MDM Narrative Medical decision making narrative: Differential diagnosis includes gastroenteritis, viral illness, urinary tract infection, ureteral calculus, pancreatitis, and dehydration. CBC will be obtained to assess for leukocytosis and anemia. Comprehensive metabolic profile will be obtained to assess for hepatic function, renal function, and electrolyte abnormality. Lipase will be obtained to assess for pancreatitis. Urinalysis will be obtained to assess for urinary tract infection and hematuria. Lab Data Attestation: I reviewed the patient's lab results. Lab results narrative: CBC was reviewed and was within normal limits. Comprehensive metabolic profile was reviewed and was within normal limits. Lipase was reviewed and is no (more content not included)... Normal [facility] Lipaseon 12-03-2023 Lipase [Catalytic activity/Vol] 37 U/L Normal 13-75 [facility] Comment on above: Result Comment: Samantha reynoso note: LIPASE revised reference range effective 22. New Lipase methodology. Expected to produce lower values than the previous assay method. NEW Reference Range: 13 - 75 U/L Performed By: #### L 100.0100, L501.2450, L500.4050 ####[facility] [address] [place], [address] Urinalysis, Completeon 12-02 BACTERIA RARE Normal None Seen [facility] Comment on above: Order Comment: CLEAN CATCH Performed By: #### L 400.0001 #### [facility] [address] [place], [address] RBC 0-5 SEEN Normal 0-5 [facility] Comment on above: Order Comment: CLEAN CATCH Performed By: #### L 400.0001 #### [facility] [address] [place], [address] EPI,SQUAMOUS 0-5 SEEN Normal 5-10 [facility] Comment on above: Order Comment: CLEAN CATCH Performed By: #### L 400.0001 #### [facility] [address] [place], [address] Mucus Ql (Urine sed) 0 SEEN Normal [facility] Comment on above: Order Comment: CLEAN CATCH Performed By: #### L 400.0001 #### [facility] [address] [place], [address] WBC 0 SEEN Normal 0-5 [facility] Comment on above: Order Comment: CLEAN CATCH Performed By: #### L 400.0001 #### [facility] [address] [place], [address] Surgery Visit Reporton 12-01 Surgery Visit Report [facility] [address] [place] [address] OFFICE VISIT Date of Service: 12/02/23 MR#: [id number] Acct: [id number] Name: OLE BELTRAN Rep #: [id number] : 1965 Provider: Dr. Jared williamson MD Age/Sex: 58/F Location: [facility] Status: Signed Intake Vital Signs 02/13/23 20:31 12/02/23 09:27 Height 5 ft 5 in 5 ft 5 in Weight: 220 lb BMI 36.6 BP 138/88 H Blood Pressure Location Rt brachial Position Sitting Respiration 16 Intake Visit Reasons: LIPOMA ON ARMS AND LEGS Chief Complaint: multiple lipomas [employer] Required: No Is patient in pain?: No Allergies No Known Allergies Allergy (Verified 12/03/23 11:33) Medications ???Medication ???Instructions ???Recorded ???Confirmed ???Type ibuprofen 800 mg tablet 800 mg PO Q8H PRN pain #20 tabs 10/27/22 12/02/23 Rx cholecalciferol (vitamin D3) 50 50 mcg PO QDAY 12/02/23 12/02/23 History mcg (2,000 unit) capsule ferrous sulfate 325 mg (65 mg 325 mg PO QDAY 12/02/23 12/02/23 History iron) tablet lansoprazole 30 mg capsule,delayed 30 mg PO QDAY 12/02/23 12/02/23 History release Have you fallen in the past year?: No PFSH Medical History Multiple lipomas Anemia Low TSH level GERD (gastroesophageal reflux disease) Surgical History S/P excision of lipoma History of appendectomy Social History current occupational status: employed Smoking Status: Never smoker alcohol intake: never HPI HPI HPI: Patient is a 58-year-old female who presents for evaluation of multiple lipomas. She is a spouse of a prior patient, Mr. Whitney, and he accompanies her to today's visit. She shares that she has had lipomas for many years and had many removed in the past. She declares that has been a few years since her last resection. She confirms that the pathology on these removed lipomas is always a benign. When asked to narrow down what her primary complaints are today, Mrs. Beltran suggest that the soft tissue masses about her right knee are the most limiting. She describes them causing some swelling and making it difficult to walk. She then goes on to describe pain from the lipomas in her bilateral thighs. She also describes significant pain from bilateral lipomas of her lumbar back region. She notes that there she has such discomfort that she will simply cry and she states frustration with never been told what these areas represent. Patient has history of arthritis but declares this is not rheumatoid arthritis. She is a never tobacco user. She does not use any blood thinners. She shares that she is under workup for thyroid problems and is hoping to get to the bottom of this issue as she reports great difficulty in losing weight despite trying a number of diets ROS General General: No weight change, appetite, fatigue, colon cancer, breast cancer or weakness HEENT HEENT: No difficulty swallowing, eye injury, eye surgery, swollen glands or hoarseness Endo Endocrine: Yes thyroid disease; No diabetes mellitus, thyroid cancer, Hair loss, heat intolerance or cold intolerance Skin Skin: No rash or changing moles Breast Breast: No left breast lump, right breast lump, nipple discharge, breast pain, abnormal mammogram, abnormal US or breast enlargement Musc Musculoskeletal: Yes arthritis and rheumatoid arthritis; No back problems, gout or joint pain Cardio Cardiovascular: No murmur, pacemaker, heart disease, atrial fibrillation, high blood pressure, heart attack, heart stent, palpitations, shortness of breat with exertion or chest pain Psych Psychiatric: No depression, anxiety or hearing voices Resp Respiratory: No shortness of breath, No sleep apnea, No cough, No COPD, No asthma, No emphysema and No wheezing Gastro Gastrointestinal: No abdominal pain, No nausea or vomiting, No diarrhea, No constipation, No blood in stool, Yes acid reflux, No hemorrhoids, No ulcers, No gallbladder problem and No black,tarry stools Juno Hematologic: No blood thinners, No blood disorders, No bleeding, No anemia and No blood clots Neuro Neurologic: No system reviewed and no additional complaints, except as documented, No as per HPI, No abnormal gait, No abnormal hearing, No abnormal movements, No abnormal speech, No behavioral changes, No burning sensations, No confusion, No convulsions, No disequilibrium, No dizziness, No localized weakness, No frequent falls, No headache(s), No lack of coordination, No loss of vision, No memory loss, No numbness, No other visual disturbances, No radicular pain, No restless legs, No sensory deficit, No syncope, No tingling, N (more content not included)... Normal [facility] Thyroid Antibodieson 024 TG AB 16.6 IU/mL High 0.0-0.9 [facility] Comment on above: Result Comment: Thyr oglobulin Antibody measured by [employer] It should be noted that the presence of thyroglobulin antibodies may not be pathogenic nor diagnostic, especially at very low levels. The assay rehabilitation center manager has found that four percent of individuals without evidence of thyroid disease or autoimmunity will have positive TgAb levels up to 4 IU/mL. Performed at: [address] [id number] [employer] Tender: Kleber Woodward PhD, Phone: [phone] Performed By: #### L 500.4100, L500.4050, L501.9520, L100.0100, L3300.6750, L506.0400, L501.9985, L501.17309 ####[facility] [address] [place], [place], [id number] THYR PEROX AB 259 IU/mL High 0-34 [facility] Comment on above: Performed By: #### L 500.4100, L500.4050, L501.9520, L100.0100, L3300.6750, L506.0400, L501.9985, L501.44446 ####[facility] [address] [place], [place], [id number] CBC W/Diff, Automatedon 08-17 Absolute Lymph 1.13 X10 3/uL Normal 0.83-4.51 [facility] Comment on above: Performed By: #### L 500.4100, L500.4050, L501.9520, L100.0100, L3300.6750, L506.0400, L501.9985, L501.80570 ####[facility] [address] [place], [place], [id number] Absolute Neut 3.1 X10 3/uL Normal 2.0-7.7 [facility] Comment on above: Performed By: #### L 500.4100, L500.4050, L501.9520, L100.0100, L3300.6750, L506.0400, L501.9985, L501.91066 ####[facility] [address] [place], [place], [id number] Basophils/100 WBC (Bld) 0.6 % Normal 0-1 [facility] Comment on above: Performed By: #### L 500.4100, L500.4050, L501.9520, L100.0100, L3300.6750, L506.0400, L501.9985, L501.20052 ####[facility] [address] [place], [address] Eosinophils/100 WBC (Bld) 3.2 % Normal 0-5 [facility] Comment on above: Performed By: #### L 500.4100, L500.4050, L501.9520, L100.0100, L3300.6750, L506.0400, L501.9985, L501.41024 ####[facility] [address] [place], [address] Erythrocyte distribution width (RBC) [Ratio] 11.9 % Normal 11.6-14.6 [facility] Comment on above: Performed By: #### L 500.4100, L500.4050, L501.9520, L100.0100, L3300.6750, L506.0400, L501.9985, L501.44601 ####[facility] [address] [place], [address] Hematocrit (Bld) [Volume fraction] 41.3 % Normal 37-47 [facility] Comment on above: Performed By: #### L 500.4100, L500.4050, L501.9520, L100.0100, L3300.6750, L506.0400, L501.9985, L501.55072 ####[facility] [address] [place], [address] Hemoglobin (Bld) [Mass/Vol] 13.7 g/dL Normal 12.0-15.0 [facility] Comment on above: Performed By: #### L 500.4100, L500.4050, L501.9520, L100.0100, L3300.6750, L506.0400, L501.9985, L501.73158 ####[facility] [address] [place], [address] IG% 0.200 Normal 0.0-0.9 [facility] Comment on above: Result Comment: IG% - Immature Granulocytes (promyelocytes, myelocytes and metamyelocytes) > 1% indicates that a LEFT SHIFT is Present. Performed By: #### L 500.4100, L500.4050, L501.9520, L100.0100, L3300.6750, L506.0400, L501.9985, L501.49267 ####[facility] [address] [place], [address] Lymphocytes/100 WBC (Bld) 24.1 % Normal 19-41 [facility] Comment on above: Performed By: #### L 500.4100, L500.4050, L501.9520, L100.0100, L3300.6750, L506.0400, L501.9985, L501.29517 ####[facility] [address] [place], [address] MCH (RBC) [Entitic mass] 31.0 pg Normal 27.0-32.0 [facility] Comment on above: Performed By: #### L 500.4100, L500.4050, L501.9520, L100.0100, L3300.6750, L506.0400, L501.9985, L501.72484 ####[facility] [address] [place], [address] MCHC (RBC) [Mass/Vol] 33.2 g/dL Normal 32-36 [facility] Comment on above: Performed By: #### L 500.4100, L500.4050, L501.9520, L100.0100, L3300.6750, L506.0400, L501.9985, L501.00617 ####[facility] [address] [place], [address] MCV (RBC) [Entitic vol] 93.4 fL Normal 81-99 [facility] Comment on above: Performed By: #### L 500.4100, L500.4050, L501.9520, L100.0100, L3300.6750, L506.0400, L501.9985, L501.66775 ####[facility] [address] [place], [address] Monocytes/100 WBC (Bld) 6.6 % Normal 0-10 [facility] Comment on above: Performed By: #### L 500.4100, L500.4050, L501.9520, L100.0100, L3300.6750, L506.0400, L501.9985, L501.37576 ####[facility] [address] [place], [address] Neutrophils/100 WBC (Bld) 65.3 % Normal 47-70 [facility] Comment on above: Performed By: #### L 500.4100, L500.4050, L501.9520, L100.0100, L3300.6750, L506.0400, L501.9985, L501.83212 ####[facility] [address] [place], [address] Nucleated RBC (Bld) [#/Vol] 0 10*3/uL Normal 0-5 [facility] Comment on above: Performed By: #### L 500.4100, L500.4050, L501.9520, L100.0100, L3300.6750, L506.0400, L501.9985, L501.46691 ####[facility] [address] [place], [address] Platelet mean volume (Bld) [Entitic vol] 10.7 fL Normal 6.2-12.0 [facility] Comment on above: Performed By: #### L 500.4100, L500.4050, L501.9520, L100.0100, L3300.6750, L506.0400, L501.9985, L501.93367 ####[facility] [address] [place], [address] Platelets (Bld) [#/Vol] 248 10*3/uL Normal 150-450 [facility] Comment on above: Performed By: #### L 500.4100, L500.4050, L501.9520, L100.0100, L3300.6750, L506.0400, L501.9985, L501.92857 ####[facility] [address] [place], [address] RBC (Bld) [#/Vol] 4.42 10*6/uL Normal 4.2-5.4 [facility] Comment on above: Performed By: #### L 500.4100, L500.4050, L501.9520, L100.0100, L3300.6750, L506.0400, L501.9985, L501.09663 ####[facility] [address] [place], [address] RDW SD 41.4 fl Normal 35.1-43.9 [facility] Comment on above: Performed By: #### L 500.4100, L500.4050, L501.9520, L100.0100, L3300.6750, L506.0400, L501.9985, L501.71722 ####[facility] [address] [place], [address] WBC (Bld) [#/Vol] 4.7 10*3/uL Normal 4.4-11.[address] [facility] Comment on above: Performed By: #### L 500.4100, L500.4050, L501.9520, L100.0100, L3300.6750, L506.0400, L501.9985, L501.10233 ####[facility] [address] [place], [address] Comprehensive Metabolic Prof ilon 09-14-2023 Albumin [Mass/Vol] 3.8 g/dL Normal 3.2-5.[address] [facility] Comment on above: Performed By: #### L 500.4100, L500.4050, L501.9520, L100.0100, L3300.6750, L506.0400, L501.9985, L501.49042 ####[facility] [address] [place], [address] Albumin/Globulin [Mass ratio] 1.2 {ratio} Normal 0.9-2.4 [facility] Comment on above: Performed By: #### L 500.4100, L500.4050, L501.9520, L100.0100, L3300.6750, L506.0400, L501.9985, L501.33238 ####[facility] [address] [place], [address] ALK P 60 U/L Normal 45-117 [facility] Comment on above: Performed By: #### L 500.4100, L500.4050, L501.9520, L100.0100, L3300.6750, L506.0400, L501.9985, L501.80636 ####[facility] [address] [place], [address] ALT [Catalytic activity/Vol] 21 U/L Normal 13-56 [facility] Comment on above: Performed By: #### L 500.4100, L500.4050, L501.9520, L100.0100, L3300.6750, L506.0400, L501.9985, L501.87190 ####[facility] [address] [place], [address] AST [Catalytic activity/Vol] 14 U/L Low 15-37 [facility] Comment on above: Performed By: #### L 500.4100, L500.4050, L501.9520, L100.0100, L3300.6750, L506.0400, L501.9985, L501.15970 ####[facility] [address] [place], [address] Bilirubin [Mass/Vol] 0.40 mg/dL Normal 0.20-1.00 [facility] Comment on above: Result Comment: For patients on eltrombopag therapy, use of Dimension [place] TBIL is not recommended. Performed By: #### L 500.4100, L500.4050, L501.9520, L100.0100, L3300.6750, L506.0400, L501.9985, L501.28178 ####[facility] [address] [place], [address] BUN/CRE 18.7 RATIO Normal 10-20 [facility] Comment on above: Performed By: #### L 500.4100, L500.4050, L501.9520, L100.0100, L3300.6750, L506.0400, L501.9985, L501.33460 ####[facility] [address] [place], [place], [phone] CA,Total 8.6 mg/dL Normal 8.5-10.1 [facility] Comment on above: Performed By: #### L 500.4100, L500.4050, L501.9520, L100.0100, L3300.6750, L506.0400, L501.9985, L501.59781 ####[facility] [address] [place], [place], [phone] Chloride [Moles/Vol] 110 mmol/L High 98-107 [facility] Comment on above: Performed By: #### L 500.4100, L500.4050, L501.9520, L100.0100, L3300.6750, L506.0400, L501.9985, L501.52152 ####[facility] [address] [place], [place], [phone] CO2 [Moles/Vol] 25.0 mmol/L Normal 21.0-32.0 [facility] Comment on above: Performed By: #### L 500.4100, L500.4050, L501.9520, L100.0100, L3300.6750, L506.0400, L501.9985, L501.48904 ####[facility] [address] [place], [place], [phone] Creatinine [Mass/Vol] 0.80 mg/dL Normal 0.55-1.02 [facility] Comment on above: Result Comment: The validity of the calculated GFR GFRAA in patients over 70 years has not been determined. Clinical correlation is essential. Performed By: #### L 500.4100, L500.4050, L501.9520, L100.0100, L3300.6750, L506.0400, L501.9985, L501.06358 ####[facility] [address] [place], [place], [phone] EST GFR - AA 95 mL/min Normal >60 [facility] Comment on above: Result Comment: Afri can [place] GFR Calc Performed By: #### L 500.4100, L500.4050, L501.9520, L100.0100, L3300.6750, L506.0400, L501.9985, L501.60835 ####[facility] [address] [place], [address] GAP 4 Low 5-15 [facility] Comment on above: Performed By: #### L 500.4100, L500.4050, L501.9520, L100.0100, L3300.6750, L506.0400, L501.9985, L501.76594 ####[facility] [address] [place], [address] GFR/1.73 sq M.predicted among non-blacks MDRD (S/P/Bld) [Vol rate/Area] 78 mL/min/{1.73_m2} Normal >60 [facility] Comment on above: Result Comment: Non- GFR Calc Performed By: #### L 500.4100, L500.4050, L501.9520, L100.0100, L3300.6750, L506.0400, L501.9985, L501.69453 ####[facility] [address], [address] Globulin (S) [Mass/Vol] 3.3 g/dL Normal 2.2-4.2 [facility] Comment on above: Performed By: #### L 500.4100, L500.4050, L501.9520, L100.0100, L3300.6750, L506.0400, L501.9985, L501.93116 ####[facility] [address] [place], [address] Glucose [Mass/Vol] 106 mg/dL Normal 74-[address] [facility] Comment on above: Result Comment: Fast ing Glucose result from 100 to 125 mg/dL suggests IMPAIRED HOMEOSTASIS per A.D.A. criteria. Performed By: #### L 500.4100, L500.4050, L501.9520, L100.0100, L3300.6750, L506.0400, L501.9985, L501.08853 ####[facility] [address] [place], [address] Potassium [Moles/Vol] 4.0 mmol/L Normal 3.5-5.1 [facility] Comment on above: Performed By: #### L 500.4100, L500.4050, L501.9520, L100.0100, L3300.6750, L506.0400, L501.9985, L501.97120 ####[facility] [address] [place], [address] Sodium [Moles/Vol] 139 mmol/L Normal 136-[address] [facility] Comment on above: Performed By: #### L 500.4100, L500.4050, L501.9520, L100.0100, L3300.6750, L506.0400, L501.9985, L501.44692 ####[facility] [address] [place], [address] T PROT 7.1 g/dL Normal 6.4-8.2 [facility] Comment on above: Performed By: #### L 500.4100, L500.4050, L501.9520, L100.0100, L3300.6750, L506.0400, L501.9985, L501.83528 ####[facility] [address] [place], [address] Urea nitrogen [Mass/Vol] 15 mg/dL Normal 7-18 [facility] Comment on above: Performed By: #### L 500.4100, L500.4050, L501.9520, L100.0100, L3300.6750, L506.0400, L501.9985, L501.78066 ####[facility] [address] [place], [address] Free T3on 09-14-2023 Free T3 [Mass/Vol] 2.3 pg/mL Normal 2.18-3.[address] [facility] Comment on above: Performed By: #### L 500.4100, L500.4050, L501.9520, L100.0100, L3300.6750, L506.0400, L501.9985, L501.13859 ####[facility] [address] [place], [place], [phone] Hemoglobin A1con 09-14-2023 HbA1c (Bld) [Mass fraction] 5.2 % Normal 3.8-5.6 [facility] Comment on above: Result Comment: Norm al < 5.7 % Prediabetic 5.7 - 6.4 % Diabetic >or= 6.5 % Please note range changes. Performed By: #### L 500.4100, L500.4050, L501.9520, L100.0100, L3300.6750, L506.0400, L501.9985, L501.39440 ####[facility] [address] [place], [address] Lipid Profileon 09-14-2023 Cholesterol [Mass/Vol] 190 mg/dL Normal 200 [facility] Comment on above: Result Comment: <200 mg/dL Desirable 200-240 mg/dL Borderline >240 mg/dL High Risk Performed By: #### L 500.4100, L500.4050, L501.9520, L100.0100, L3300.6750, L506.0400, L501.9985, L501.16519 ####[facility] [address] [place], [place], [phone] Cholesterol in HDL [Mass/Vol] 58 mg/dL Normal [facility] Comment on above: Result Comment: The drugs N-Acetylcysteine and Metamizole may falsely depress this assay. Reference Range HDL <40 mg/dL Low HDL Cholesterol HDL >or= 60 mg/dL High HDL Cholesterol Performed By: #### L 500.4100, L500.4050, L501.9520, L100.0100, L3300.6750, L506.0400, L501.9985, L501.78850 ####[facility] [address] [place], [address] Cholesterol in LDL [Mass/Vol] 100 mg/dL Normal 0-130 [facility] Comment on above: Performed By: #### L 500.4100, L500.4050, L501.9520, L100.0100, L3300.6750, L506.0400, L501.9985, L501.65923 ####[facility] [address] [place], [place], [phone] Cholesterol in VLDL [Mass/Vol] 32 mg/dL Normal 5-40 [facility] Comment on above: Performed By: #### L 500.4100, L500.4050, L501.9520, L100.0100, L3300.6750, L506.0400, L501.9985, L501.40857 ####[facility] [address] [place], [place], [phone] Triglyceride [Mass/Vol] 161 mg/dL Normal [facility] Comment on above: Result Comment: The drugs N-Acetylcysteine and Metamizole may falsely depress this assay. Serum Triglycerides Reference Interval Normal <150 mg/dL Borderline high 150 - 199 mg/dL High 200 - 499 mg/dL Very High > or = 500 mg/dL Performed By: #### L 500.4100, L500.4050, L501.9520, L100.0100, L3300.6750, L506.0400, L501.9985, L501.64221 ####[facility] [address] [place], [place], [phone] T4 Free Directon 09-14-2023 T4 FREE DIRECT 0.88 ng/dL Normal 0.76-1.46 [facility] Comment on above: Performed By: #### L 500.4100, L500.4050, L501.9520, L100.0100, L3300.6750, L506.0400, L501.9985, L501.26503 ####[facility] [address] [place], [place], [phone] Thyroid Stim Hormone (TSH)on 09-14-2023 TSH 2.38 uIU/mL Normal 0.358-3.74 [facility] Comment on above: Performed By: #### L 500.4100, L500.4050, L501.9520, L100.0100, L3300.6750, L506.0400, L501.9985, L501.94005 ####[facility] [address] [place], [address] XR KNEE 1 OR 2 VIEWS RIGHTon 05-16-2023 XR KNEE 1 OR 2 VIEWS RIGHT ORIGINAL EXAMINATION: TWO XRAY VIEWS OF THE RIGHT KNEE 05/16/2023 1:54 pm COMPARISON: None. HISTORY: ORDERING SYSTEM PROVIDED HISTORY: Reason for Exam: Pain FINDINGS: There is no acute fracture. The bones are in anatomic alignment. The joint spaces are maintained. There is no significant joint effusion. There is no radiopaque foreign body. IMPRESSION: No acute osseous abnormality. Interpreted by: Matias Ordonez MD Preliminary Report By: Matias Ordonez MD Electronically signed By Matias Ordonez MD Dictated Date: 05/16/2023 2:02:10 PM Prelim Date: 05/16/2023 2:02:38 PM Sign Date: 05/16/2023 2:02:38 PM Ordering Provider: DAVE GALVEZ [facility] ([place]) Laboratory - Chemistry and C hemistry - challengeOrdered By: Neftaly Velez on 07-30-2022 Free T4 [Mass/Vol] 0.98 ng/dL 0.76-1.[address] [facility] No Panel InformationOrdered By: Neftaly Velez on 07-30-2022 Thyroid Stimulating Hormone (TSH) 4.87 uIU/mL 0.358-3.74 [facility] Absolute lymphocyte countOrd ered By: Neftaly Velez on 07-07-2022 Lymphocytes Auto (Unsp spec) [#/Vol] 0.80 10*3/uL 0.83-4.51 [facility] Basophil percentageOrdered B y: Neftaly Velez on 07-07-2022 Basophils/100 WBC (Bld) 0.5 % 0-1 [facility] Bilirubin [Mass/Vol] 0.60 mg/dL 0.20-1.00 [facility] Comment on above: For patients on eltr ombopag therapy, use of Dimension [place] TBIL is not recommended. Chloride [Moles/Vol] 107 mmol/L 98-107 [facility] Cholesterol [Mass/Vol] 175 mg/dL <200 [facility] Comment on above: <200 mg/dL Desirable 200-240 mg/dL Borderline >240 mg/dL High Risk Eosinophils/100 WBC (Bld) 5.2 % 0-5 [facility] Glucose [Mass/Vol] 96 mg/dL 74-[address] [facility] Neutrophils (Bld) [#/Vol] 2.5 10*3/uL 2.0-7.7 [facility] Neutrophils/100 WBC (Bld) 64.2 % 47-70 [facility] Potassium [Moles/Vol] 4.1 mmol/L 3.5-5.1 [facility] Protein [Mass/Vol] 7.3 g/dL 6.4-8.[address] [facility] Sodium [Moles/Vol] 140 mmol/L 136-[address] [facility] Triglyceride [Mass/Vol] 71 mg/dL <199 [facility] Comment on above: The drugs N-Acetylcy steine and Metamizole may falsely depress this assay.Serum Triglycerides Reference Interval Normal <150 mg/dL Borderline high 150 - 199 mg/dL High 200 - 499 mg/dL Very High > or = 500 mg/dL WBC (Bld) [#/Vol] 3.9 10*3/uL 4.4-11.[address] [facility] Blood erythrocytes count (nu mber/volume)Ordered By: Neftaly Velez on 07-07-2022 RBC (Bld) [#/Vol] 4.65 10*6/uL 4.2-5.4 [facility] Blood hemoglobin measurement (mass/volume)Ordered By: Neftaly Velez on 07-07-2022 Hemoglobin (Bld) [Mass/Vol] 14.3 g/dL 12.0-15.0 [facility] Blood lymphocytes/100 leukoc ytesOrdered By: Neftaly Velez on 07-07-2022 Lymphocytes/100 WBC (Bld) 20.6 % 19-41 [facility] Blood monocytes/100 leukocyt esOrdered By: Neftaly Velez on 05-22-2023 Monocytes/100 WBC (Bld) 9.0 % 0-10 [facility] Blood platelet mean volumeOr dered By: Neftaly Velez on 07-07-2022 Platelet mean volume (Bld) [Entitic vol] 11.5 fL 6.2-12.0 [facility] Determination of erythrocyte mean corpuscular volume (MCV)Ordered By: Neftaly Velez on 07-07-2022 MCV (RBC) [Entitic vol] 96.6 fL 81-99 [facility] Hematocrit Auto (Bld) [Volum e fraction]Ordered By: Neftaly Velez on 07-07-2022 Hematocrit (Bld) [Volume fraction] 44.9 % 37-47 [facility] Laboratory - Chemistry and C hemistry - challengeOrdered By: Neftalymatt Velez on 07-07-2022 ALP [Catalytic activity/Vol] 62 U/L 45-117 [facility] ALT [Catalytic activity/Vol] 25 U/L 13-56 [facility] CO2 [Moles/Vol] 25.0 mmol/L 21.0-32.0 [facility] Free T4 [Mass/Vol] 0.90 ng/dL 0.76-1.[address] [facility] Globulin (S) [Mass/Vol] 3.7 g/dL 2.2-4.2 [facility] Urea nitrogen/Creatinine [Mass ratio] 24.1 mg/mg 10-20 [facility] Laboratory - Hematology and Cell countsOrdered By: Neftaly Velez on 07-07-2022 Erythrocyte distribution width (RBC) [Entitic vol] 43.7 fL 35.1-43.9 [facility] Erythrocyte distribution width (RBC) [Ratio] 12.2 % 11.6-14.6 [facility] Immature granulocytes/100 WBC (Bld) 0.500 % 0.0-0.9 [facility] Comment on above: IG% - Immature Granu locytes (promyelocytes, myelocytes and metamyelocytes) > 1% indicates that a LEFT SHIFT is Present. MCH (RBC) [Entitic mass] 30.8 pg 27.0-32.0 [facility] Nucleated RBC/100 WBC (Bld) [Ratio] 0 % 0-5 [facility] MCHC Auto (RBC) [Mass/Vol]Or dered By: Neftaly Velez on 07-07-2022 MCHC (RBC) [Mass/Vol] 31.8 g/dL 32-36 [facility] No Panel InformationOrdered By: Neftaly Velez on 07-07-2022 Estimated GFR (MDRD) Amer 103 mL/min >60 [facility] Comment on above: GFR Calc Estimated GFR (MDRD) Non-Af Amer 85 mL/min >60 [facility] Comment on above: Non- GFR Calc Free Triiodothyronine (T3) pg/dL 2.4 pg/mL 2.18-3.98 [facility] Thyroglobulin Antibody 20.9 IU/mL 0.0-0.9 [facility] Comment on above: Thyroglobulin Antibo dy measured by [facility] [employer] Thyroid Stimulating Hormone (TSH) 1.57 uIU/mL 0.358-3.74 [facility] Platelets bldOrdered By: Marilyn Velez on 07-07-2022 Platelets (Bld) [#/Vol] 258 10*3/uL 150-450 [facility] Serum or plasma albumin cheng urement (mass/volume)Ordered By: Nefatly Velez on 07-07-2022 Albumin [Mass/Vol] 3.6 g/dL 3.2-5.[address] [facility] Serum or plasma albumin/glob ulin mass ratioOrdered By: Neftaly Velez on 07-07-2022 Albumin/Globulin [Mass ratio] 1.0 {ratio} 0.9-2.4 [facility] Serum or plasma calcium cheng urement (mass/volume)Ordered By: Neftaly Velez on 07-07-2022 Calcium [Mass/Vol] 8.6 mg/dL 8.5-10.[address] [facility] Serum or plasma cholesterol in HDL measurement (mass/volume)Ordered By: Neftaly Velez on 07-07-2022 Cholesterol in HDL [Mass/Vol] 55 mg/dL >40 [facility] Comment on above: The drugs N-Acetylcy steine and Metamizole may falsely depress this assay. Reference Range HDL <40 mg/dL Low HDL Cholesterol HDL >or= 60 mg/dL High HDL Cholesterol Serum or plasma cholesterol in VLDL measurement (mass/volume)Ordered By: Neftaly Velez on 07-07-2022 Cholesterol in VLDL [Mass/Vol] 14 mg/dL 5-40 [facility] Serum or plasma creatinine m easurement (mass/volume)Ordered By: Neftaly Velez on 07-07-2022 Creatinine [Mass/Vol] 0.75 mg/dL 0.55-1.02 [facility] Comment on above: The validity of the calculated GFR & GFRAA in patients over 70 years has not been determined. Clinical correlation is essential. Serum or plasma low density lipoprotein (LDL) cholesterol measurement (mass/volume)Ordered By: Neftaly Velez on 07-07-2022 Cholesterol in LDL [Mass/Vol] 106 mg/dL 0-130 [facility] Serum or plasma thyroperoxid ase antibody assay (units/volume)Ordered By: Neftaly Velez on 07-07-2022 TPO Ab Qn 308 [IU]/mL 0-34 [facility] Comment on above: Performed at: [address] Director: Kleber Woodward PhD, Phone: [phone] Serum or plasma urea nitroge n measurement (mass/volume)Ordered By: Neftaly Velez on 07-07-2022 Urea nitrogen [Mass/Vol] 18 mg/dL 7-18 [facility] Thin prep Papanicolaou smear with manual screeningOrdered By: Neftaly Velez on 07-07-2022 Thin prep Papanicolaou smear with manual screening 17 U/L 15-37 [facility] Thin prep Papanicolaou smear with manual screening 8 5-15 [facility] Whole blood hemoglobin A1c/t otal hemoglobin ratio (mass fraction)Ordered By: Neftaly Velez on 07-07-2022 HbA1c (Bld) [Mass fraction] 5.3 % 3.8-5.6 [facility] Comment on above: Normal < 5.7 % Predi abetic 5.7 - 6.4 % Diabetic >or= 6.5 % Please note range changes. Vital Signs Date Time Vital Sign Value Performing Clinician Facility 05-16-2023 12:20-0400 Blood Pressure Cuff Size TAMMY GARCIA DO [facility] 05-16-2023 12:20-0400 Blood Pressure Location TAMMY REICHFIELD DO [facility] 05-16-2023 12:20-0400 Blood Pressure Method TAMMY REICHFIELD D O [facility] 05-16-2023 12:20-0400 Body temperature 98.24 [degF] TAMMY REICHFIELD DO [facility] 05-16-2023 12:20-0400 Diastolic Blood Pressure Non-Invasive 99 mm[Hg] TAMMY REICHFIELD DO [facility] 05-16-2023 12:20-0400 Heart rate 64 /min TAMMY REICHFIELD DO [facility] 05-16-2023 12:20-0400 Respiratory rate 18 /min TAMMY REICHFIELD DO [facility] 05-16-2023 12:20-0400 Systolic Blood Pressure Non-Invasive 171 mm[Hg] TAMMY REICHFIELD DO [facility] 02-13-2023 22:12-0500 Respiratory rate 16 /min [facility] 02-13-2023 20:31-0500 Body height 165.1 cm [facility] 02-13-2023 20:31-0500 Body mass index (BMI) [Ratio] 36.8 kg/m2 [facility] 02-13-2023 20:31-0500 Body temperature 97.5 [degF] [facility] 02-13-2023 20:31-0500 Body weight 100.24 kg [facility] 02-13-2023 20:31-0500 Diastolic blood pressure 97 mm[Hg] [facility] 02-13-2023 20:31-0500 Heart rate 78 /min [facility] 02-13-2023 20:31-0500 SaO2% (BldA) [Mass fraction] 98 % [facility] 02-13-2023 20:31-0500 Systolic blood pressure 152 mm[Hg] [facility] 10-27-2022 13:44-0400 Body height 165.1 cm [facility] 10-27-2022 13:44-0400 Body mass index (BMI) [Ratio] 37 kg/m2 [facility] 10-27-2022 13:44-0400 Body temperature 97.9 [degF] [facility] 10-27-2022 13:44-0400 Body weight 101 kg [facility] 10-27-2022 13:44-0400 Diastolic blood pressure 117 mm[Hg] [facility] 10-27-2022 13:44-0400 Heart rate 78 /min [facility] 10-27-2022 13:44-0400 Respiratory rate 20 /min [facility] 10-27-2022 13:44-0400 SaO2% (BldA) [Mass fraction] 99 % [facility] 10-27-2022 13:44-0400 Systolic blood pressure 159 mm[Hg] [facility] 10-09-2022 20:08-0400 Body height 165.1 cm OSCAR PALACIOS MD [facility] 10-09-2022 20:08-0400 Body temperature 98.42 [degF] OSCAR PALACIOS MD [facility] 10-09-2022 20:08-0400 Body weight 100 kg OSCAR PALACIOS MD [facility] 10-09-2022 20:08-0400 Diastolic Blood Pressure Non-Invasive 89 1 OSCAR PALACIOS MD [facility] 10-09-2022 20:08-0400 Heart rate 68 /min OSCAR PALACIOS MD [facility] 10-09-2022 20:08-0400 Respiratory rate 18 /min OSCAR PALACIOS MD [facility] 10-09-2022 20:08-0400 Systolic Blood Pressure Non-Invasive 144 1 OSCAR PALACIOS MD [facility] 10-09-2022 17:46-0400 Body height 165.1 cm [facility] 10-09-2022 17:46-0400 Body mass index (BMI) [Ratio] 36.5 kg/m2 [facility] 10-09-2022 17:46-0400 Body temperature 97.5 [degF] [facility] 10-09-2022 17:46-0400 Body weight 99.47 kg [facility] 10-09-2022 17:46-0400 Diastolic blood pressure 87 mm[Hg] [facility] 10-09-2022 17:46-0400 Heart rate 85 /min [facility] 10-09-2022 17:46-0400 Respiratory rate 18 /min [facility] 10-09-2022 17:46-0400 SaO2% (BldA) [Mass fraction] 99 % [facility] 10-09-2022 17:46-0400 Systolic blood pressure 134 mm[Hg] [facility] Encounters Encounter Date Encounter Type Care Provider Facility Start: 05-25-2024 End: 05-25-2024 Emergency department patient visit AMBER DOUGIE LEWIS Facility:[facility] Start: 05-25-2024 End: 05-25-2024 Emergency department patient visit NEFTALY VELEZ DO Facility:[facility] Start: 05-24-2024 End: 05-24-2024 ambulatory Alma Velez Facility:[facility] Start: 02-17-2024 End: 02-17-2024 Emergency department patient visit Morales Rey Facility:[facility] Start: 01-05-2024 End: 01-05-2024 ambulatory Alma Velez Facility:[facility] Start: 12-03-2023 End: 12-03-2023 Emergency department patient visit Tomas Whitlock Facility:[facility] Start: 12-02-2023 End: 12-02-2023 ambulatory Alma Velez Facility:[facility] Start: 09-28-2023 ambulatory Alma Rosie [place] [place] Start: 09-14-2023 End: [facility] Start: 09-08-2023 ambulatory [facility] Facility :[facility] Start: 09-03-2023 ambulatory [facility] Facility :[facility] Start: 05-16-2023 End: 05-16-2023 Emergency [facility] Facility[facility] Start: 05-16-2023 End: 05-16-2023 Emergency department patient visit [facility] Start: 02-13-2023 End: 02-13-2023 Emergency department patient visit [facility] Work Phone: Start: 10-27-2022 End: 10-27-2022 Emergency department patient visit [facility] Work Phone: Start: 10-09-2022 End: 10-09-2022 Emergency department patient visit OSCAR PALACIOS MD Facility:[facility] Start: 10-09-2022 End: 10-09-2022 Emergency department patient visit OSCAR PALACIOS MD [facility] Start: 10-09-2022 End: 10-09-2022 Emergency department patient visit [facility] Work Phone: Start: 07-30-2022 End: 07-30-2022 Patient encounter procedure [facility] Start: 07-07-2022 End: 07-07-2022 [facility]ulatory [facility] [place] Work Phone: Start: 07-07-2022 End: 07-07-2022 Patient encounter procedure [facility] Start: 01-27-2022 End: 01-27-2022 ambulatory [facility] Work Phone: Start: 01-27-2022 End: 01-27-2022 Patient encounter procedure [facility] [place] Start: 01-13-2022 End: 01-13-2022 Patient encounter procedure [facility] [place] Procedures Date Procedure Procedure Detail Performing Clinician Start: 02-13-2023 Radiography of ankle Start: 02-13-2023 X-ray of both feet Start: 01-27-2022 Ultrasonography of breast Start: 01-13-2022 Screening mammography Plan of Treatment Date Care Activity Detail Author Patient Education [facility] Work Phone: Patient referral [facility] Work Phone: Payers Date Payer Category Payer Unknown [id number] 2023 Self-pay 2022 Unknown [id number] 1965 Unknown [id number] 2.16.8 [id number] 1965 Unknown [id number] 2.16.8 [id number] 1965 Unknown [id number] 2.16.8 [id number] 1965 Unknown [id number] 2.16.8 [id number] Unknown LISA [id number] Unknown [id number] 2.16.8 [id number] Unknown [id number] 2.16.8 [id number] Unknown [id number] 2.16.8 [id number] Unknown [id number] 2.16.8 [id number] Unknown [id number] 2.16.8 [id number] Unknown [id number] 2.16.8 40.1.325533.3.579.2.462 Unknown [id number] 2.16.8 40.1.076716.3.579.2.462 Unknown [id number] 2.16.8 40.1.582895.3.579.2.462 Unknown [id number] 2.16.8 40.1.203654.3.579.2.462 Social History Date Type Detail Facility Tobacco smoking stat us COIS Unknown if ever smoked [facility] Work Phone: Start: 1965 Sex Assigned At Female [facility] Start: 10-09-2022 Tobacco smoking status Never s moked tobacco (finding) [facility] Start: 10-09-2022 End: 02-13-2023 Tobacco smoking status NHIS Unknown if ever smoked [facility] Functional Status Date Assessment Result Facility 05-16-2023 Functional Status Independent [facility] 10-09-2022 Functional Status ID band on, Call device within reach, Bed in low position, Wheels locked, Upper/Half-Length side-rails up, personal items within reach, Visitor at bedside [facility] Mental Status Date Assessment Result Facility 05-16-2023 Mental Status Orientation Oriented x 4 [facility] 10-09-2022 Mental Status Oriented x 4 [facility] Discharge instructions 05-16-2023 Note Date & Type Note Facility 05-16-2023 Hospital Discharg e instructions Patient Education 05/16/2023 14:11:36 Knee Pain of Uncertain Cause Knee Pain with Uncertain Cause There are several common causes for knee pain. These can include: A sprain of the ligaments that support the joint An injury to the cartilage lining of the joint Arthritis from flul-tcd-bona or inflammation There are other causes as well. There may also be swelling, reduced movement of the knee joint, and pain with walking. A definite diagnosis will still need to be made. If your symptoms don't improve, further follow-up and testing may be needed. Home care Stay off the injured leg as much as possible until pain improves. Apply an ice pack over the injured area for 15 to 20 minutes every 3 to 6 hours. You should do this for the first 24 to 48 hours. You can make an ice pack by filling a plastic bag that seals at the top with ice cubes and then wrapping it with a thin towel. Continue to use ice packs for relief of pain and swelling as needed. As the ice melts, be careful not to get your wrap, splint, or cast wet. After 48 hours, apply heat (warm shower or warm bath) for 15 to 20 minutes several times a day, or alternate ice and heat. If you have to wear a jarw-qlq-luvc knee brace, you can open it to apply the ice pack, or heat, directly to the knee. Never put ice directly on the skin. Always wrap the ice in a towel or other type of cloth. You may use ibep-rjw-osdrqbz pain medicine to control pain, unless another pain medicine was prescribed. If you have chronic liver or kidney disease or ever had a stomach ulcer or gastrointestinal bleeding, talk with your healthcare provider before using these medicines. If crutches or a walker have been recommended, don't put weight on the injured leg until you can do so without pain. Check with your healthcare provider before returning to sports or full work duties. If you have a xuae-kar-cfxp knee brace, you can remove it to bathe and sleep, unless told otherwise. Follow-up care Follow up with your healthcare provider as advised. This is usually within 1 to 2 weeks. If X-rays were taken, you will be told of any new findings that may affect your care Call 911 Call 911 if you have: Shortness of breath Chest pain When to seek medical advice Call your healthcare provider right away if any of these occur: Toes or foot becomes swollen, cold, blue, numb, or tingly Pain or swelling spreads over the knee or calf Warmth or redness appears over the knee or calf Other joints become painful Rash appears Fever of 100.4 F (38 C) or higher, or as directed by your healthcare provider [place] [phone] [employer]. [address] [place] [address], [place] [address]. All rights reserved. This information is not intended as a substitute for professional medical care. Always follow your healthcare professional's instructions. Follow Up Care 05/16/2023 12:17:36 With:RAPHAEL HERNANDEZ DO Orthopedic Address: [address] [place] [phone] When:2-4 days [facility] 05-16-2023 Note Date & Type Note Facility 05-16-2023 Note Discharge Instructions Thank you for allowing [facility] to assist you with your healthcare needs. The following is important discharge information regarding your hospital visit. Diagnosis from Today's Visit Knee pain-swelling Right knee pain What to Do Next Instructions from Your Care Team No qualifying data available. Post Acute Orders No qualifying data available. You Need to Schedule the Following Appointments Follow Up with RAPHAEL HERNANDEZ DO Orthopedic When Within 2-4 days Where: [address] [place] [address] [phone] Allergies No Known Medication Allergies Medications Please ask your primary doctor or pharmacist before taking any other medication not listed, including over the counter drugs, herbal medications, vitamins and or supplements as they may interact with your home medications. Please take this list to your next doctor s visit. Bring all medications you take, including over the counter medications, herbals and other supplements with you to your doctor s visit. Patients and families are reminded to discard old lists and to update any records with all medication providers or retail pharmacies. Education Materials Knee Pain with Uncertain Cause There are several common causes for knee pain. These can include: A sprain of the ligaments that support the joint An injury to the cartilage lining of the joint Arthritis from wawz-svi-ntvh or inflammation There are other causes as well. There may also be swelling, reduced movement of the knee joint, and pain with walking. A definite diagnosis will still need to be made. If your symptoms don't improve, further follow-up and testing may be needed. Home care Stay off the injured leg as much as possible until pain improves. Apply an ice pack over the injured area for 15 to 20 minutes every 3 to 6 hours. You should do this for the first 24 to 48 hours. You can make an ice pack by filling a plastic bag that seals at the top with ice cubes and then wrapping it with a thin towel. Continue to use ice packs for relief of pain and swelling as needed. As the ice melts, be careful not to get your wrap, splint, or cast wet. After 48 hours, apply heat (warm shower or warm bath) for 15 to 20 minutes several times a day, or alternate ice and heat. If you have to wear a ckuq-mbg-gyrw knee brace, you can open it to apply the ice pack, or heat, directly to the knee. Never put ice directly on the skin. Always wrap the ice in a towel or other type of cloth. You may use ktzi-gib-chbqiin pain medicine to control pain, unless another pain medicine was prescribed. If you have chronic liver or kidney disease or ever had a stomach ulcer or gastrointestinal bleeding, talk with your healthcare provider before using these medicines. If crutches or a walker have been recommended, don't put weight on the injured leg until you can do so without pain. Check with your healthcare provider before returning to sports or full work duties. If you have a aono-dbn-kgbg knee brace, you can remove it to bathe and sleep, unless told otherwise. Follow-up care Follow up with your healthcare provider as advised. This is usually within 1 to 2 weeks. If X-rays were taken, you will be told of any new findings that may affect your care Call 911 Call 911 if you have: Shortness of breath Chest pain When to seek medical advice Call your healthcare provider right away if any of these occur: Toes or foot becomes swollen, cold, blue, numb, or tingly Pain or swelling spreads over the knee or calf Warmth or redness appears over the knee or calf Other joints become painful Rash appears Fever of 100.4 F (38 C) or higher, or as directed by your healthcare provider [place] [phone] [employer]. [address] [place] [address], [place] [address]. All rights reserved. This information is not intended as a substitute for professional medical care. Always follow your healthcare professional's instructions. Additional Information VACCINATE! IT SAVES LIVES! Members of the community who have not yet received the COVID-19 vaccine and would like to receive it can visit one of [facility] vaccine clinics. There are many vaccine clinic locations within the [facility]. For locations and available times, please visit www.gettheshot.coronavirus.[place].gov/. It is important to note that some COVID mobile vaccine clinics are held outdoors and may be canceled in rainy or stormy conditions. To learn more about pediatric vaccinations (ages 5-11), we invite you to visit the [facility] webpage. https://www.[email or web address].org/pages/2 280-Mlxts-Grjonjfjaiv-Frequently-Asked -Questions.html To learn more about the COVID-19 vaccine, we invite you to visit the CDC website for a list of frequently asked questions. https://www.cdc.gov/coronavirus/2019-n cov/vaccines/faq.html [facility] Patient Portal Access Instructions: Stay connected with your healthcare team and access your personal medical information anytime with the [facility] Patient Portal. If you would like a full copy of your medical records please contact the [facility] Medical Records Department Thursday through Thursday between 8a.m. and 4:30p.m. Please follow the directions below to access the portal: 1.Access the email account you provided upon registration to the [facility].2.Look for an invitation email from [facility].3.Open the email and access the invitation link: Accept Invitation to [facility]4.Fill in the required santos to create your account. Sign into www.[employer] with your username and password that you [...] you will allow to register on the [facility] Patient Portal for access to your information. You can also access the [employer] Patient Portal on the [employer]. Simply click on Health Records under Health Data and then click on the [facility] logo. HOW TO SAFELY DISPOSE OF PRESCRIPTION [...] Call your local pharmacy or go to [email or web address]://[email or web address] to find one close to you.3.Make use of household items: Use cat litter or old coffee grounds to dispose medications if other options are not available. Mix your drugs with these household products, seal them in an airtight container and throw it into the garbage. Call [facility]: [phone] to be sure your drugs can be [...] a CHART COPY Signatures Patient Education Materials Knee Pain of Uncertain Cause Medication Leaflets My discharge plan and instructions have been reviewed and explained to me and IGELA DOLORES understand my current condition and have read and understand these discharge instructions. I have received a written copy of the plan/instructions. If I have questions, I am aware that I should contact my doctor. 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 HISTORY: ORDERING SYSTEM PROVIDED HISTORY: Reason for Exam: Pain FINDINGS: There is no acute fracture. The bones are in anatomic alignment. The joint spaces are maintained. There is no significant joint effusion. There is no radiopaque foreign body. IMPRESSION: No acute osseous abnormality. Interpreted by: Matias Ordonez MD Preliminary Report By: Matias Ordonez MD Electronically signed By Matias Ordonez MD Dictated Date: 05/16/2023 2:02:10 PM Prelim Date: 05/16/2023 2:02:38 PM Sign Date: 05/16/2023 2:02:38 PM Ordering Provider: DAVE GALVEZ [facility] Discharge summary 02-13-2023 Note Date & Type Note Facility 02-13-2023 Discharge summary Note Date/Time February 13, 2023 10:00pm [facility] Medical Records Department [address] [place] [address] Emergency Department Summary 02/13/23 MR#: [id number] Acct: [id number] Name: OLE BELTRAN Rep #:[id number] : 1965 57 From: Suman Lamb MD PCP: Neftaly Velez, Status:REG E R Location: ED HPI History of Present Illness Chief Complaint: Lower Extremity Injury Informant: patient Narrative Narrative: Patient presents with pain in her right foot and medial ankle for weeks. She does not remember exactly when it started it has been hurting for so long relatively. She does not recall an injury, however she starts talking about a prior injury that she had to her small toe on the right side that she did not present for, she thought it was about 2 months ago. Her then corrects her and states it was 8 months ago. She does not have any rashes or fever/chills or other systemic symptoms. No history of blood clots she is not on any anticoagulants. She is healthy. She states that hurts more to put weight on her foot and to move her foot and ankle around. She has seen no redness. She thinks it may be a little swollen. PFSH PFS Medical History GERD (gastroesophageal reflux disease) Low TSH level Lymph node enlargement Home Medications ibuprofen 800 mg tablet 800 mg PO Q8H PRN pain #20 tabs 10/27/22 [Rx Last Taken Unknown] penicillin V potassium 500 mg tablet 500 mg PO 4X/DAY #40 tabs 10/27/22 [Rx Last Taken Unknown] Allergy/AdvReac Type Severity Reaction Status Date / Time No Known Allergies Allergy Verified 02/13/23 20:35 Family History no significant family his Surgical History History of appendectomy Social History Smoking Status: Never smoker ROS ROS ED Constitutional Constitutional ED: Denies chills or fever(s) Musculoskeletal Musculoskeletal: Reports extremity pain; Denies neck pain Integumentary Denies Abrasions, rash or wounds Neurologic Neurologic: Denies paresthesias or weakness EXAM Physical Exam Const Vital Signs: 02/13/23 20:31 Temperature 97.5 F L Temperature Source Temporal Pulse Rate 78 Respiratory Rate 15 Blood Pressure 152/97 H Blood Pressure Mean 115 Pulse Ox 98 Oxygen Delivery Method Room Air Positive well nourished and well developed General Appearance ED: well developed and NAD Neck full ROM and supple Back/Spine normal ROM and normal to inspection Extremity normal to inspection and full ROM Extremity Narrative: Patient can move the right foot and ankle fully without any apparent difficulty. Inspection is normal. There is no erythema, signs of any joint inflammation objectively, and I see no objective signs of any swelling anywhere. She has an intact 2+/4 dorsalis pedis pulse. There are no signs of any injuries or nidus for infection, nor do I see any signs of cellulitis. The areas of tenderness are at the tibial aspect of the first metatarsal, there is some mild tenderness dorsally a little more proximally in the area of the first metatarsal but the rest of the midfoot is nontender. The arch soft tissues are nontender, the calcaneus is nontender, the medial aspect of the talus is nontender, she has some mild tenderness in the fifth toe but the other toes are nontender. The ankle is nontender, she can move it fully but states that hurts to move. She does not appear to have any difficulty moving it without bearing weight. There are no areas of calf tenderness, all compartments are soft and nondistended, andthe rest of her exam is very benign with no signs of a cord. Neuro oriented x3, no focal motor deficits and no sensory deficits noted Sensorium / Orientation: alert Psych mental status grossly normal and thought process normal Skin no wounds Rashes: no rashes MDM MDM MDM Narrative Medical decision making narrative: Three-view x-ray series each of the right foot and right ankle were obtained andon my interpretation both are negative. Radiology in agreement. They did note a small plantar calcaneal spur, but given the location of her pain more tibial aspect and dorsal in the forefoot/midfoot, I do not think this is necessarily causing this. As I discussed with this patient, I think following up with a sales and service specialist would be reasonable if it has been hurting her for this long, certainly in the differential are simple pathologies such as contusion or strainif she did something she cannot recall, which I discussed with her. At this time given full range of motion no signs of any unique joint involvement, no signs of cellulitis or any objective swelling to suggest a vascular issue, I do not think that there is any reason to obtain other emergent testing. Husn-vko-ahybmlh medication should be adequate for this, I do not think she needs narcotics, she is given a podiatry referral. She is comfortable with thatplan. Radiography Diagnostic Testing: Clinical Impression(s) from Imaging Studies Foot X-Ray 02/13/23 20:36 IMPRESSION: No acute bony injury. Electronically Signed: Aly Sheffield MD at 21:34 EST , Ankle X-Ray 02/13/23 20:46 IMPRESSION: No acute bony injury. Electronically Signed: Aly Sheffield MD at 21:35 EST , Discharge Plan Triage Chief Complaint: Lower Extremity Injury ED Provider: Suman Lamb Dx/Rx/DC Orders Clinical Impression: Acute pain of right foot, Acute right ankle pain Instructions: ED Foot Contusion Prescriptions: No Action ibuprofen 800 mg tablet 800 mg PO Q8H PRN (Reason: pain) Qty: 20 0RF penicillin V potassium 500 mg tablet 500 mg PO 4X/DAY Qty: 40 0RF Primary Care Provider: Neftaly Velez Referrals: Neftaly Velez DO [Primary Care Provider] - Jared Blancas DPM [Med Staff - Active Staff] - (call for appt) Disposition Disposition: Home, Self Care What to do if you have Problems For any increased pain, shortness of breath, bleeding, nausea or vomiting, chestpain, or any unexpected problems, contact your Primary Care Provider. Call [facility] ([phone]) or report to the closest Emergency Room. Call 911 if necessary. 02/13/232200 <Electronically signed by Suman Lamb MD> Cosigner Signature (if applicable): CC: STEPHANI Blancas; Neftaly Velez DO ~ Signed [facility] Work Phone: Hospital Discharge instructions 10-09-2022 Note Date & [...] temperature. Use toothpaste made for sensitive teeth. [place] gently up and down instead of sideways. Brushing sideways can wear away root surfaces if they are exposed. If your tooth is chipped or cracked, or if there is a large open cavity, put oil of cloves directly on the tooth to relieve pain. You can buy oil of cloves at [employer]. Some pharmacies carry an qvqi-ici-kyjntkl toothache kit. This contains a paste that you can put on the exposed tooth to make it less sensitive. Put a cold pack on your jaw over the sore area to help reduce pain. You may use pteb-hje-uldwzsk medicine to ease pain, unless your doctor [...] healthcare provider Pus drains from the tooth [phone] [employer]. [address] [place] [address], [place] [address]. All rights reserved. This information is not intended as a substitute for professional medical care. Always follow your healthcare professional's instructions. Follow Up Care 10/09/2022 20:02:18 With:Dental Referral List Address: When:2-4 days Comments:Schedule appointment as soon as possibleReturn to ED if symptoms worsen [facility] Clinical Note 10-09-2022 Note Date & Type Note Facility 10-09-2022 Note Discharge Instructions Thank you for allowing [facility] to assist you with your healthcare needs. [...] retail pharmacies. Medication Leaflets clindamycin (oral/injection) (sanjiv Preciado sin) Cleocin HCl, Cleocin Pediatric, Cleocin Phosphate What [...] (upper right side), tiredness, itching, dark urine, janice-colored stools, jaundice (yellowing of [...] may report side effects to FDA at 5-388-LMY-1690. What other drugs will affect clindamycin? Sometimes it is not safe to use certain medications at the same time. Some drugs can affect your blood levels of other drugs you take, which may increase side effects or make the medications less effective. Other drugs may affect clindamycin, including prescription and joew-sgc-xzozqxy medicines, vitamins, and herbal products. Tell your [...] to ensure that the information provided by [employer]. ('[employer]') is accurate, up-to-date, and complete, but no guarantee is made to that effect. Drug information contained herein may be time sensitive. [employer] information has been compiled for use by healthcare practitioners and consumers in the [place] and therefore [employer] does not warrant that uses outside of the [place] are appropriate, unless specifically indicated otherwise. [employer] drug information does not endorse drugs, diagnose patients or recommend therapy. [employer] drug information is an informational resource designed [...] effective or appropriate for any given patient. [employer] does not assume any responsibility for any aspect of healthcare administered with the aid of information [employer] provides. The information contained herein is not intended to cover all possible uses, directions, precautions, warnings, drug interactions, allergic reactions, or adverse effects. If you have questions about the drugs you are taking, check with your doctor, nurse or pharmacist. Copyright 6789-3168 [employer]. Version: 14.. Revision Date: 11/12/2021. naproxen (na [...] may report side effects to FDA at 4-933-WHT-3061. What other drugs will affect naproxen? Ask [...] drugs may affect naproxen, including prescription and gjxd-zpi-gfpwggm medicines, vitamins, and herbal products. Not all [...] to ensure that the information provided by [employer]') is accurate, up-to-date, and complete, but no guarantee is made to that effect. Drug information contained herein may be time sensitive. [employer] information has been compiled for use by healthcare practitioners and consumers in the [place] and therefore [employer] does not warrant that uses outside of the [place] are appropriate, unless specifically indicated otherwise. [employer]'s drug information does not endorse drugs, diagnose patients or recommend therapy. [employer] drug information is an informational resource designed [...] effective or appropriate for any given patient. [facility] does not assume any responsibility for any aspect of healthcare administered with the aid of information [facility] provides. The information contained herein is not intended to cover all possible uses, directions, precautions, warnings, drug interactions, allergic reactions, or adverse effects. If you have questions about the drugs you are taking, check with your doctor, nurse or pharmacist. Copyright 0778-2091 [facility]. Version: 22.. Revision Date: 09/18/2022. Education Materials Dental Pain [...] temperature. Use toothpaste made for sensitive teeth. [place] gently up and down instead of sideways. Brushing sideways can wear away root surfaces if they are exposed. If your tooth is chipped or cracked, or if there is a large open cavity, put oil of cloves directly on the tooth to relieve pain. You can buy oil of cloves at drugstores. Some pharmacies carry an qprj-ben-bekcftm toothache kit. This contains a paste that you can put on the exposed tooth to make it less sensitive. Put a cold pack on your jaw over the sore area to help reduce pain. You may use skbx-tmv-cdnypjh medicine to ease pain, unless your doctor [...] healthcare provider Pus drains from the tooth [id number] [employer]. [address] [place] [address], [place] [address]. All rights reserved. This information is not intended as a substitute for professional medical care. Always follow your healthcare professional's instructions. Additional Information VACCINATE! IT SAVES LIVES! Members of the community who have not yet received the COVID-19 vaccine and would like to receive it can visit one of [facility] vaccine clinics. There are many vaccine clinic locations within the [facility]. For locations and available times, please visit [email or web address] It is important to note that some COVID mobile vaccine clinics are held outdoors and may be canceled in rainy or stormy conditions. To learn more about pediatric vaccinations (ages 5-11), we invite you to visit the [facility] webpage. [email or web address]/[email or web address]-Ukuxf-Nvuuhlpkpib-Frequently-[email or web address] -Questions.html To learn more about the COVID-19 vaccine, we invite you to visit the CDC website for a list of frequently asked questions. https://www.cdc.gov/coronavirus/2019-n cov/vaccines/faq.html [facility] Access Instructions: Stay connected with your healthcare team and access your personal medical information anytime with the [facility]. If you would like a full copy of your medical records please contact the [facility] Medical Records Department Thursday through Thursday between 8a.m. and 4:30p.m. Please follow the directions below to access the portal: 1.Access the email account you provided upon registration to the [facility].2.Look for an invitation email from [facility].3.Open the email and access the invitation link: Accept Invitation to [facility]4.Fill in the required santos to create your account. Sign into [email or web address] with your username and password that you [...] you will allow to register on the [facility] Portal for access to your information. You can also access the [facility] Patient Portal on the [employer]. Simply click on Health Records under Health Data and then click on the [facility] logo. HOW TO SAFELY DISPOSE OF PRESCRIPTION [...] Call your local pharmacy or go to [email or web address] to find one close to you.3.Make use of household items: Use cat litter or old coffee grounds to dispose medications if other options are not available. Mix your drugs with these household products, seal them in an airtight container and throw it into the garbage. Call [facility]: [phone] to be sure your drugs can be [...] been reviewed and explained to me and I,OLE BELTRAN understand my current condition and have read and understand these discharge instructions. I have received a written copy of the plan/instructions. If I have questions, I am aware that I should contact my doctor. 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 [facility] Work Phone: Chief Complaint and Reason for Visit Chief Complaint SCREENING/CAN NOT GE T FILMS ABNORMAL MAMMOGRAM Chief Complaint dental Chief Complaint dental Dental Pain Chief Complaint Dental Pain RIGHT FOOT PAIN Advance Directives No Advanced Directives Records Found Advance Directive Response Recorded Date/ Time Living Will No October 09 9:38pm Power of Superintendent Job No October 09, 023 9:38pm Advance Directive Response Recorded Date/ Time Living Will No October 27, 2022 2:53pm Power of Superintendent Job No October 2:53pm Advance Directive Response Recorded Date/ Time Living Will No February 13, 2 023 9:38pm Power of Superintendent Job No February 13, 2023 9:38pm Summary Purpose Family History No Family History Records Found Additional Source Comments Goals (unrecognized section and content) Goals may be documented in a n alternate sectionGoals may be documented in an alternate sectionGoals may be documented in an alternate section No data available for this sectionGoals may be documented in an alternate sectionGoals may be documented in an alternate sectionGoals may be documented in an alternate section No data available for this section Care Teams (unrecognized sec tion and content) Team Status: Active Member Role Status Dates Neftaly Velez DO Primary Care Provider Active Team Status: Inactive Member Role Status Dates [facility] Primary Care Provider A ctive Neftaly Velez DO Attending Provider Active Team Status: Inactive Member Role Status Dates Neftaly Velez DO Primary Care Provider, Attending Provider Active Team Status: Inactive Member Role Status Dates Neftaly Velez DO Primary Care Provider Active Ed Physician Provider Emergency Provider Active Team Status: Inactive Member Role Status Dates Neftaly Velez DO Primary Care Provider Active Ed Physician Provider Attending Provider, Emergency Pr ovider Active Team Status: Inactive Member Role Status Dates Neftaly Velez DO Primary Care Provider Active Dr. Marcela Blanchard MD Emergency Provider Active Team Status: Inactive Member Role Status Dates Neftaly Velez DO Primary Care Provider Active Dr. Marcela Blanchard MD Attending Provider, Emergency Provider Active Team Status: Inactive Member Role Status Dates Neftaly Velez DO Primary Care Provider Active Dr. Suman Lamb MD Referring Provider, Emergency Provider Active INFORMATION SOURCE (unrecogn ized section and content) DATE CREATED AUTHOR 05/21/2023 [facility] ([place]) DATE CREATED AUTHOR AUTHOR'S ORGANIZ ATION 05/26/2024 [facility] DATE CREATED AUTHOR AUTHOR'S ORGANIZ ATION 05/29/2024 [facility] DATE CREATED AUTHOR AUTHOR'S ORGANIZ ATION 05/30/2024 [facility] REC[facility] PERTAINING TO PATIENTS WHO ARE [...] BE BASED ON THE PRIMARY CLINICAL RECORDS. [employer] provides no warranty or guarantee of the accuracy or completeness of information in this document.
== END | disposition home or self-care (01) ==
LOC: LABSPEC 16:18
PROVIDERS: PCP Family Medicine; Visit Provider Physician Assistant
DX: R82.90 Unspecified abnormal findings in urine (principal)
CPT/HCPCS: 87077; 87086; 87088; 87186

== ENCOUNTER → 2024-12-08 | Outpatient (CLI) | payer MEDICAID, SELFPAY ==
[2024-12-08 18:21] LABS: Hematocrit 46.8 % (37-47); Hemoglobin 15.2 g/dL (12.0-15.0); Immature Granulocytes Count 0.020 X10^3/uL (0.0-0.0); Mean Corp Hgb Conc 32.5 g/dL (32-36); Mean Corpuscular Volume 94.4 fL (81-99); Mean Platelet Vol. 11.1 fl (6.2-12.0); NRBC Flagged by Analyzer 0 % (0-5); Platelet Count 284 K/mm3 (150-450); RBC Distribution Width CV 12.2 % (11.6-14.6); RBC Distribution Width SD 42.3 fl (35.1-43.9); Red Blood Count 4.96 M/mm3 (4.2-5.4); White Blood Count 5.2 K/mm3 (4.4-11.0)
[2024-12-08 19:18] LABS: AST(SGOT) 25 U/L (<=31); Alanine Aminotransfer ALT/SGPT 20 U/L (<=34); Albumin, Serum 4.3 g/dL (3.5-5.0); Alkaline Phosphatase 66 U/L (35-104); Amylase 79 U/L (28-100); Anion Gap 11 (5-15); BUN 15 mg/dL (4-19); BUN/Creat Ratio 21.2 RATIO (10-20); CORTISOL AM 3.98 ug/dL (6.02-18.40); Calcium,Total 8.9 mg/dL (7.6-11.0); Carbon Dioxide 23.8 mmol/L (21.0-32.0); Chloride 105 mmol/L (98-108); Ferritin 160 ng/mL (22-378); Free T3 3.1 pg/mL (2.18-3.98); Globulin 2.8 g/dL (2.2-4.2); Glucose 92 mg/dL (70-99); Lipase 49 U/L (13-75); Potassium 4.5 mmol/L (3.3-5.1); Vitamin B12 568 pg/mL (180-914); Vitamin D,25 Hydroxy 30.7 ng/mL (30-100)
== END | disposition home or self-care (01) ==
LOC: VSLAB 12:26
PROVIDERS: PCP Family Medicine; Visit Provider Family Medicine
DX: E06.3 Autoimmune thyroiditis (principal); R68.81 Early satiety; K21.9 Gastro-esophageal reflux disease without esophagitis
CPT/HCPCS: 36415; 80053; 82150; 82306; 82533; 82607; 82728; 83036; 83690; 84439; 84443; 84481; 85025

== ENCOUNTER → 2024-12-17 | Outpatient (CLI) | payer MEDICAID, SELFPAY ==
[2024-12-17 08:48] LABS: CORTISOL AM 13.80 ug/dL (6.02-18.40)
== END | disposition home or self-care (01) ==
LOC: LAB 07:34
PROVIDERS: PCP Family Medicine; Referring Provider Family Medicine; Visit Provider Family Medicine
DX: R94.7 Abnormal results of other endocrine function studies (principal)
CPT/HCPCS: 36415; 82533